=== PATIENT | female | born 1940 | race Hispanic/Latino ===

== ENCOUNTER 2018-03-15 06:29 | Day surgery (SDC) | payer OTHER, MEDICARE ==
[2018-03-08 16:34] LABS: APPEARANCE,URINE SL CLOUDY (CLEAR); BILIRUBIN,URINE NEGATIVE (NEGATIVE); COLOR,URINE YELLOW (YELLOW); GLUCOSE, URINE (UA) NEGATIVE (NEGATIVE); KETONES,URINE NEGATIVE (NEGATIVE); LEUKOCYTE ESTERASE ,URINE SMALL (NEGATIVE); NITRATE,URINE NEGATIVE (NEGATIVE); OCCULT BLOOD,URINE MODERATE (NEGATIVE); PH,URINE 6.5 (5.0-8.0); PROTEIN,URINE 100 (NEGATIVE); UROBILINOGEN,URINE 0.2 mg/dL (0.2-1.0)
[2018-03-08 16:35] LABS: BASOPHILS % (AUTO) 0.7 % (0.0-5.0); EOSINOPHILS % (AUTO) 3.1 % (0.0-8.0); HEMATOCRIT 36.5 % (36-48); LYMPHOCYTES % (AUTO) 24.1 % (21.0-51.0); MEAN CORPUSCULAR HEMOGLOBIN 29.1 pg (27.0-33.0); MEAN CORPUSCULAR HGB CONC 33.3 g/dL (32.0-36.0); MEAN CORPUSCULAR VOLUME 87.6 fL (79-99); MONOCYTES % (AUTO) 8.9 % (3.0-13.0); NEUTROPHILS % (AUTO) 63.2 % (40.0-77.0); PLATELET COUNT (AUTO) 212 K/uL (130-400); RED BLOOD CELL COUNT(AUTO) 4.17 MIL/uL (4.00-5.50); RED CELL DISTRIBUTION WIDTH 13.6 % (11.0-15.5); WHITE BLOOD COUNT (AUTO) 6.3 K/uL (4.8-10.8)
[2018-03-08 16:36] VITALS: BP 133/51
[2018-03-08 16:49] LABS: POTASSIUM 4.2 mmol/L (3.5-5.1)
[2018-03-08 16:52] LABS: BACTERIA,URINE Rare /HPF (None Seen); YEAST,URINE BUDDING Few /HPF (None Seen)
[2018-03-08 16:53] LABS: SQUAMOUS EPITHELIAL CELL,UR Rare /HPF (0-2)
[2018-03-15] VITALS (13 sets, daily range): BP systolic 118–140; BP diastolic 54–68
[~2018-03-15] VITALS: Ht 147.3 cm; Wt 58.6 kg
[2018-03-15] MEDS: CEFTRIAXONE SODIUM 1 GM IVP SCH ×2 (06:00→08:35)
[~2018-03-15 06:29] MED LIST: ALEN70TA47 PO; CALC600T12 PO; GABA-531 PO; LIOT5TAB8 PO; LISI-613 PO; LORA10TA7 PO; MACR100 PO; SIMV10TA6 PO; VIT D2 PO
[2018-03-15] MEDS ORDERED: SODIUM CHLORIDE 0.9% 1000ML 1,000 ML IV ONE (07:06)
[2018-03-15] MEDS ORDERED: DEXAMETHASONE SOD PHOSPHATE 10MG/ML 1ML VIAL ONE (07:53)
[2018-03-15] MEDS ORDERED: LIDOCAINE PF 2% 5ML ABBOJECT ONE (07:53)
[2018-03-15] MEDS ORDERED: ONDANSETRON HCL 4 MG/2 ML VIAL ONE (07:53)
[2018-03-15] MEDS ORDERED: NEOSTIGMINE 5MG/5ML SYR IV ONE (07:53)
[2018-03-15] MEDS ORDERED: MIDAZOLAM HCL 1 MG/ML 2ML VIAL ONE (07:53)
[2018-03-15] MEDS ORDERED: PROPOFOL 10 MG/ML 20ML VIAL IV ONE (07:53)
[2018-03-15] MEDS ORDERED: GLYCOPYRROLATE 0.2 MG/ML 5 ML VIAL ONE (07:53)
[2018-03-15] MEDS ORDERED: FENTANYL CITRATE PF 50 MCG/1 ML 2ML VIAL ONE (07:54)
[2018-03-15] MEDS ORDERED: BOTULINUM TOXIN TYPE A 100 UNITS/VIAL INJ ONE (08:00)
[2018-03-15] MEDS ORDERED: EPHEDRINE SULFATE 50 MG/ML AMPULE ONE (08:53)
== END 2018-03-15 11:05 | disposition home or self-care (01) ==
LOC: DAH 06:29
PROVIDERS: ATTEND Urology
DX: N39.41 Urge incontinence (principal); E11.9 Type 2 diabetes mellitus without complications; I10 Essential (primary) hypertension; K21.9 Gastro-esophageal reflux disease without esophagitis; E03.9 Hypothyroidism, unspecified; Z98.890 Other specified postprocedural states
CPT/HCPCS: 36415; 52287; 80048; 81001; 82948 ×2; 85025; 87088; 93005; A4215; A4218; A4358; A4600; J0696; J1100; J2001; J2405; J2704; J2710; J3010; J3490 ×2; J7030 ×2; J2250

== ENCOUNTER 2018-03-29 21:33 | Emergency (ER) | payer OTHER, MEDICARE ==
[2018-03-29 21:53] LABS: APPEARANCE,URINE CLOUDY (CLEAR); BILIRUBIN,URINE SMALL (NEGATIVE); COLOR,URINE RED (YELLOW); GLUCOSE, URINE (UA) NEGATIVE (NEGATIVE); KETONES,URINE 5 mg/dL (NEGATIVE); LEUKOCYTE ESTERASE ,URINE MODERATE (NEGATIVE); NITRATE,URINE POSITIVE (NEGATIVE); OCCULT BLOOD,URINE LARGE (NEGATIVE); PH,URINE 7.5 (5.0-8.0); PROTEIN,URINE >=300 (NEGATIVE)
[2018-03-29 21:58] LABS: RBC,URINE Full Field /HPF (0-1)
[2018-03-29 21:59] LABS: BACTERIA,URINE Few /HPF (None Seen)
[2018-03-29 22:14] LABS: BASOPHILS % (AUTO) 0.4 % (0.0-5.0); HEMATOCRIT 34.8 % (36-48); LYMPHOCYTES % (AUTO) 15.1 % (21.0-51.0); MEAN CORPUSCULAR HEMOGLOBIN 29.7 pg (27.0-33.0); MEAN CORPUSCULAR HGB CONC 34.3 g/dL (32.0-36.0); MEAN CORPUSCULAR VOLUME 86.5 fL (79-99); MONOCYTES % (AUTO) 7.4 % (3.0-13.0); NEUTROPHILS % (AUTO) 76.1 % (40.0-77.0); NUCLEATED RED BLOOD CELLS 0.1 % (0.0-0.19); PLATELET COUNT (AUTO) 230 K/uL (130-400); RED BLOOD CELL COUNT(AUTO) 4.03 MIL/uL (4.00-5.50); RED CELL DISTRIBUTION WIDTH 12.8 % (11.0-15.5); WHITE BLOOD COUNT (AUTO) 8.2 K/uL (4.8-10.8)
[2018-03-29 22:26] LABS: POTASSIUM 3.4 mmol/L (3.5-5.1)
[2018-03-29 22:31] LABS: ALBUMIN 3.5 g/dL (3.5-5.0); BILIRUBIN,TOTAL 0.3 mg/dL (0.2-1.0)
[2018-03-29 22:59] LABS: INR 0.94 (0.85-1.15); PARTIAL THROMBOPLASTIN TIME 25.7 SEC (26.3-35.5); PROTHROMBIN TIME 9.9 SEC (9.6-11.6)
[2018-03-30] MEDS ORDERED: PHENAZOPYRIDINE HCL 200 MG TABLET ONE (01:33)
== END 2018-03-30 03:28 | disposition home or self-care (01) ==
LOC: EDH 21:33
DX: N32.89 Other specified disorders of bladder (principal); R31.9 Hematuria, unspecified; R30.0 Dysuria; E11.9 Type 2 diabetes mellitus without complications; I10 Essential (primary) hypertension
CPT/HCPCS: 36415; 72192; 80053; 81001; 85025; 85610; 85730; 87088

== ENCOUNTER 2018-11-08 07:30 | Day surgery (SDC) | payer OTHER, MEDICARE ==
[2018-11-05 14:05] VITALS: BP 162/58
[2018-11-05 14:27] LABS: BASOPHILS % (AUTO) 0.6 % (0.0-5.0); EOSINOPHILS % (AUTO) 2.9 % (0.0-8.0); HEMATOCRIT 37.4 % (36-48); LYMPHOCYTES % (AUTO) 15.2 % (21.0-51.0); MEAN CORPUSCULAR HEMOGLOBIN 29.4 pg (27.0-33.0); MEAN CORPUSCULAR VOLUME 89.1 fL (79-99); MONOCYTES % (AUTO) 7.4 % (3.0-13.0); NEUTROPHILS % (AUTO) 73.9 % (40.0-77.0); PLATELET COUNT (AUTO) 238 K/uL (130-400); RED CELL DISTRIBUTION WIDTH 12.1 % (11.0-15.5); WHITE BLOOD COUNT (AUTO) 8.8 K/uL (4.8-10.8)
[2018-11-05 14:30] LABS: APPEARANCE,URINE Clear (CLEAR); BILIRUBIN,URINE Negative (NEGATIVE); COLOR,URINE Yellow (YELLOW); GLUCOSE, URINE (UA) Negative (NEGATIVE); KETONES,URINE Negative (NEGATIVE); LEUKOCYTE ESTERASE ,URINE Small (NEGATIVE); NITRATE,URINE Negative (NEGATIVE); OCCULT BLOOD,URINE Moderate (NEGATIVE); PROTEIN,URINE Negative (NEGATIVE); UROBILINOGEN,URINE 0.2 mg/dL (0.2-1.0)
[2018-11-05 14:35] LABS: CREATININE 1.1 mg/dL (0.5-1.5); POTASSIUM 4.4 mmol/L (3.5-5.1)
[2018-11-05 15:04] LABS: BACTERIA,URINE Rare /HPF (None Seen); SQUAMOUS EPITHELIAL CELL,UR Rare /HPF (0-2)
[2018-11-05 15:05] LABS: TRANSITIONAL EPI CELLS,URINE Rare /HPF (None Seen)
--- NOTE | 2018-11-07 16:35 | NUR ---
ABNORMAL LABS REPORTED ABNORMAL LABS TO [facility]. NO NEW ORDERS GIVEN.
[2018-11-08] VITALS (14 sets, daily range): BP systolic 105–152; BP diastolic 47–72
[~2018-11-08] VITALS: Ht 144.8 cm; Wt 58.2 kg
[2018-11-08] MEDS: CEFTRIAXONE SODIUM 1 GM IVP SCH ×3 (06:00→10:15)
[~2018-11-08 07:30] MED LIST changes: +ACET650T9 PO; +ALEN70TA10 PO; -ALEN70TA47 PO; +ERGO500014 PO; -MACR100 PO; +NAPR-1023 PO; -VIT D2 PO
[2018-11-08] MEDS ORDERED: LACTATED RINGERS 1000ML 1,000 ML IV ONE (08:27)
--- NOTE | 2018-11-08 08:44 | NUR ---
belongings clothes , medications given to patients daughter in law Olga Lidia Marina, also noted left shoulder bruise, pt states fell on 11-05-18. also slight swelling to lower lip . pt instructed on importance to call nurse for any needs , not to get up at all without nursing assistance. fall risk bracelet in place. family at bedside. verbalized understanding. no skin breakdown noted dr. irving notified of patient fall and bruise to left shoulder no further orders given.
[2018-11-08] MEDS ORDERED: PROPOFOL 10 MG/ML 20ML VIAL IV ONE (10:28)
[2018-11-08] MEDS ORDERED: BOTULINUM TOXIN TYPE A 100 UNITS/VIAL INJ SCH (10:30)
[2018-11-08] MEDS ORDERED: FENTANYL CITRATE PF 50 MCG/1 ML 2ML VIAL ONE (10:53)
--- NOTE | 2018-11-08 12:00 | NUR ---
NEW PT received pt from PACU, S/P Cystoscopy botox injection , pt awake and alert, vs stable on arrival.
--- NOTE | 2018-11-08 12:33 | NUR ---
dc dc instructions given to pt/ pts daughter in law with rx, instructed to f/u with dr. irving, verbalized understanding.
--- NOTE | 2018-11-08 12:55 | NUR ---
dc pt dc home via w/c ,no distress noted. accompanied by family
== END 2018-11-08 12:55 | disposition home or self-care (01) ==
LOC: DAH 07:30
PROVIDERS: ATTEND Urology
DX: N39.41 Urge incontinence (principal)
CPT/HCPCS: 36415; 52287; 80048; 81001; 85025; 87088; 93005; A4215; A4218; A4354; A4358; A4510; J0585; J0696; J2704; J3010; J7120 ×2

== ENCOUNTER 2019-02-23 17:52 | Emergency (ER) | payer OTHER, MEDICARE ==
[2019-02-23 18:53] LABS: BASOPHILS % (AUTO) 1.7 % (0.0-5.0); EOSINOPHILS % (AUTO) 3.1 % (0.0-8.0); HEMATOCRIT 35.4 % (36-48); LYMPHOCYTES % (AUTO) 18.2 % (21.0-51.0); MEAN CORPUSCULAR HEMOGLOBIN 29.9 pg (27.0-33.0); MEAN CORPUSCULAR HGB CONC 33.8 g/dL (32.0-36.0); MEAN CORPUSCULAR VOLUME 88.4 fL (79-99); MONOCYTES % (AUTO) 7.6 % (3.0-13.0); NEUTROPHILS % (AUTO) 69.4 % (40.0-77.0); PLATELET COUNT (AUTO) 239 K/uL (130-400); RED BLOOD CELL COUNT(AUTO) 4.01 MIL/uL (4.00-5.50); WHITE BLOOD COUNT (AUTO) 6.5 K/uL (4.8-10.8)
[2019-02-23 18:56] LABS: APPEARANCE,URINE Clear (CLEAR); BILIRUBIN,URINE Negative (NEGATIVE); COLOR,URINE Yellow (YELLOW); GLUCOSE, URINE (UA) Negative (NEGATIVE); KETONES,URINE Negative (NEGATIVE); LEUKOCYTE ESTERASE ,URINE Moderate (NEGATIVE); NITRATE,URINE Negative (NEGATIVE); OCCULT BLOOD,URINE Small (NEGATIVE); PROTEIN,URINE Negative (NEGATIVE); UROBILINOGEN,URINE 0.2 mg/dL (0.2-1.0)
[2019-02-23 19:04] LABS: CREATININE 0.9 mg/dL (0.5-1.5); POTASSIUM 3.8 mmol/L (3.5-5.1)
[2019-02-23 19:09] LABS: ALBUMIN 4.2 g/dL (3.5-5.0); BILIRUBIN,TOTAL 0.4 mg/dL (0.2-1.0)
[2019-02-23] MEDS ORDERED: IOHEXOL-350 75 ML VIAL IV ONE (19:12)
[2019-02-23 19:23] LABS: BACTERIA,URINE None Seen /HPF (None Seen); MUCUS,URINE Few LPF (None Seen); RBC,URINE 0-1 /HPF (0-1); RENAL EPITHELIAL CELLS,URINE Rare /HPF (None Seen); TRANSITIONAL EPI CELLS,URINE Few /HPF (None Seen)
[2019-02-23] MEDS ORDERED: DiphenhydrAMINE HCL 50 MG/ML VIAL ONE (20:04)
[2019-02-23] MEDS ORDERED: FAMOTIDINE/PF 20 MG/2 ML VIAL IV ONE (20:05)
[2019-02-23] MEDS ORDERED: ONDANSETRON HCL 4 MG/2 ML VIAL ONE (20:05)
[2019-02-23] MEDS ORDERED: CEFTRIAXONE SODIUM 1 GM ONE (20:06)
[2019-02-23] MEDS ORDERED: KETOROLAC TROMETHAMINE 15MG/ML ONE (20:06)
== END 2019-02-23 21:52 | disposition home or self-care (01) ==
LOC: EDH 17:52
DX: N39.0 Urinary tract infection, site not specified (principal); E11.9 Type 2 diabetes mellitus without complications; I10 Essential (primary) hypertension
CPT/HCPCS: 36415; 74177; 80053; 81001; 83690; 85025; 87088; 96374; 96375; 99285; J0696; J1885; J2405; Q9967; J1200; J3490

== ENCOUNTER 2019-05-30 07:22 | Day surgery (SDC) | payer OTHER, MEDICARE ==
[2019-05-21 17:00] VITALS: BP 146/67
[2019-05-21 17:16] LABS: EOSINOPHILS % (AUTO) 2.9 % (0.0-8.0); HEMATOCRIT 34.3 % (36-48); LYMPHOCYTES % (AUTO) 25.4 % (21.0-51.0); MEAN CORPUSCULAR HEMOGLOBIN 31.2 pg (27.0-33.0); MEAN CORPUSCULAR VOLUME 91.6 fL (79-99); MONOCYTES % (AUTO) 8.6 % (3.0-13.0); NEUTROPHILS % (AUTO) 62.1 % (40.0-77.0); PLATELET COUNT (AUTO) 226 K/uL (130-400); RED BLOOD CELL COUNT(AUTO) 3.74 MIL/uL (4.00-5.50); WHITE BLOOD COUNT (AUTO) 5.5 K/uL (4.8-10.8)
[2019-05-21 17:21] LABS: APPEARANCE,URINE SL CLOUDY (CLEAR); BILIRUBIN,URINE NEGATIVE (NEGATIVE); COLOR,URINE YELLOW (YELLOW); GLUCOSE, URINE (UA) NEGATIVE (NEGATIVE); KETONES,URINE NEGATIVE (NEGATIVE); LEUKOCYTE ESTERASE ,URINE NEGATIVE (NEGATIVE); NITRATE,URINE NEGATIVE (NEGATIVE); OCCULT BLOOD,URINE LARGE (NEGATIVE); PROTEIN,URINE 30 mg/dL (NEGATIVE); UROBILINOGEN,URINE 0.2 mg/dL (0.2-1.0)
[2019-05-21 17:28] LABS: POTASSIUM 4.3 mmol/L (3.5-5.1)
[2019-05-21 17:43] LABS: BACTERIA,URINE Few /HPF (None Seen); RBC,URINE 26-50 /HPF (0-1)
--- NOTE | 2019-05-22 14:52 | NUR ---
UA ABNORMAL UA FAXED TO DR. SARMIENTO TO REVIEW. MESSAGE LEFT WITH PATRICA
[2019-05-26] MEDS: CEFTRIAXONE SODIUM 1 GM IVP SCH (05:00)
[2019-05-30] VITALS (15 sets, daily range): BP systolic 60–156; BP diastolic 41–79
[~2019-05-30] VITALS: Ht 146.1 cm; Wt 57.1 kg
[~2019-05-30 07:22] MED LIST changes: +ACET-48 PO; -ACET650T9 PO; +BOTULINUM TOXIN TYPE A 100 UNITS/VIAL INJ SCH; -CALC600T12 PO; +CHOL100018 PO; -ERGO500014 PO; +LINA145C PO; -LIOT5TAB8 PO; +LIOT5TAB9 PO; -LISI-613 PO; +LISI10TA7 PO
[2019-05-30] MEDS ORDERED: LACTATED RINGERS 1000ML 1,000 ML IV ONE (09:27)
[2019-05-30] MEDS ORDERED: PROPOFOL 10 MG/ML 20ML VIAL IV ONE (11:27)
[2019-05-30] MEDS ORDERED: ONDANSETRON HCL 4 MG/2 ML VIAL ONE (11:28)
[2019-05-30] MEDS: CEFTRIAXONE SODIUM 1 GM IVP SCH (11:38)
[2019-05-30] MEDS ORDERED: FENTANYL CITRATE PF 50 MCG/1 ML 2ML VIAL ONE (11:48)
[2019-05-30] MEDS ORDERED: EPHEDRINE SULFATE 50 MG/ML AMPULE ONE (12:08)
== END 2019-05-30 14:15 | disposition home or self-care (01) ==
LOC: DAH 07:22
PROVIDERS: ATTEND Urology
DX: N39.41 Urge incontinence (principal); E11.9 Type 2 diabetes mellitus without complications; I10 Essential (primary) hypertension; K21.9 Gastro-esophageal reflux disease without esophagitis; Z90.49 Acquired absence of other specified parts of digestive tract; Z98.890 Other specified postprocedural states; Z90.710 Acquired absence of both cervix and uterus; Z79.899 Other long term (current) drug therapy; Z91.018 Allergy to other foods; Z82.49 Family history of ischemic heart disease and other diseases of the circulatory system; Z83.3 Family history of diabetes mellitus
CPT/HCPCS: 36415; 52287; 80048; 81001; 85025; 87088; 93005; A4215; A4358; A4600; J0585; J0696; J2405; J2704; J3010; J3490; J7120 ×2

== ENCOUNTER 2019-06-18 18:46 | Inpatient (IN) | payer OTHER, MEDICARE | END 2019-06-21 13:45 | disposition home or self-care (01) | LOC: EDH 18:46 → EDHIP 21:49 → 3DH 23:41 | PROC: 0TBB8ZX Excision of Bladder, Via Natural or Artificial Opening Endoscopic, Diagnostic (ICD-10-PCS; principal; 2019-06-20 13:40) | DX: R31.0 Gross hematuria (principal); N39.41 Urge incontinence; N30.11 Interstitial cystitis (chronic) with hematuria; I10 Essential (primary) hypertension ==

== ENCOUNTER 2019-08-21 10:43 | Emergency (ER) | payer OTHER, MEDICARE ==
[~2019-08-21 10:43] MED LIST changes: -BOTULINUM TOXIN TYPE A 100 UNITS/VIAL INJ SCH; +CEFD300C3 PO; +ESOM40CA PO; +LIOT5TAB11 PO; -LIOT5TAB9 PO; -NAPR-1023 PO; +TYL3 PO
[2019-08-21 11:41] LABS: APPEARANCE,URINE Clear (CLEAR); BILIRUBIN,URINE Negative (NEGATIVE); COLOR,URINE Yellow (YELLOW); GLUCOSE, URINE (UA) Negative (NEGATIVE); KETONES,URINE Negative (NEGATIVE); LEUKOCYTE ESTERASE ,URINE Small (NEGATIVE); NITRATE,URINE Negative (NEGATIVE); OCCULT BLOOD,URINE Negative (NEGATIVE); PH,URINE 7.5 (5.0-8.0); PROTEIN,URINE Negative (NEGATIVE); UROBILINOGEN,URINE 0.2 mg/dL (0.2-1.0)
[2019-08-21 11:57] LABS: RBC,URINE 0-1 /HPF (0-1); WBC,URINE 0-1 /HPF (0-1)
[2019-08-21 11:58] LABS: BACTERIA,URINE Rare /HPF (None Seen); SQUAMOUS EPITHELIAL CELL,UR Rare /HPF (0-2)
[2019-08-21 12:21] LABS: BASOPHILS % (AUTO) 0.6 % (0.0-5.0); EOSINOPHILS % (AUTO) 2.2 % (0.0-8.0); HEMATOCRIT 35.8 % (36-48); LYMPHOCYTES % (AUTO) 18.2 % (21.0-51.0); MEAN CORPUSCULAR HEMOGLOBIN 30.2 pg (27.0-33.0); MEAN CORPUSCULAR HGB CONC 33.8 g/dL (32.0-36.0); MEAN CORPUSCULAR VOLUME 89.3 fL (79-99); MONOCYTES % (AUTO) 9.2 % (3.0-13.0); NEUTROPHILS % (AUTO) 69.8 % (40.0-77.0); NUCLEATED RED BLOOD CELLS 0.1 % (0.0-0.19); PLATELET COUNT (AUTO) 186 K/uL (130-400); RED BLOOD CELL COUNT(AUTO) 4.01 MIL/uL (4.00-5.50); RED CELL DISTRIBUTION WIDTH 12.7 % (11.0-15.5); WHITE BLOOD COUNT (AUTO) 5.7 K/uL (4.8-10.8)
[2019-08-21 12:31] LABS: CREATININE 0.9 mg/dL (0.5-1.5); POTASSIUM 4.3 mmol/L (3.5-5.1)
== END 2019-08-21 14:31 | disposition home or self-care (01) ==
LOC: EDH 10:43
DX: N39.0 Urinary tract infection, site not specified (principal); I10 Essential (primary) hypertension; Z90.710 Acquired absence of both cervix and uterus; Z90.49 Acquired absence of other specified parts of digestive tract; Z91.018 Allergy to other foods
CPT/HCPCS: 36415; 74176; 80048; 81001; 85025; 87088

== ENCOUNTER 2019-09-20 18:01 | Emergency (ER) | payer OTHER, MEDICARE ==
[~2019-09-20 18:01] MED LIST changes: -ACET-48 PO; +ACET-49 PO; -SIMV10TA6 PO; +SIMV10TA97 PO
[2019-09-20 18:19] LABS: APPEARANCE,URINE Clear (CLEAR); BILIRUBIN,URINE Negative (NEGATIVE); COLOR,URINE Yellow (YELLOW); GLUCOSE, URINE (UA) Negative (NEGATIVE); KETONES,URINE Negative (NEGATIVE); LEUKOCYTE ESTERASE ,URINE Trace (NEGATIVE); NITRATE,URINE Negative (NEGATIVE); OCCULT BLOOD,URINE Negative (NEGATIVE); PROTEIN,URINE Negative (NEGATIVE); UROBILINOGEN,URINE 0.2 mg/dL (0.2-1.0)
[2019-09-20 18:39] LABS: BACTERIA,URINE Rare /HPF (None Seen); RBC,URINE 0-1 /HPF (0-1); SQUAMOUS EPITHELIAL CELL,UR Rare /HPF (0-2); WBC,URINE 0-1 /HPF (0-1)
[2019-09-20] MEDS ORDERED: LIDOCAINE HCL-MPF 1% 2ML VIAL ONE (19:53)
[2019-09-20] MEDS ORDERED: CEFTRIAXONE SODIUM 1 GM ONE (19:53)
[2019-09-20] MEDS ORDERED: PHENAZOPYRIDINE HCL 200 MG TABLET ONE (19:54)
[2019-09-20] MEDS ORDERED: DICYCLOMINE HCL 20 MG TAB ONE (19:54)
== END 2019-09-20 20:21 | disposition home or self-care (01) ==
LOC: EDH 18:01
DX: N39.0 Urinary tract infection, site not specified (principal); I10 Essential (primary) hypertension; Z90.49 Acquired absence of other specified parts of digestive tract; Z90.710 Acquired absence of both cervix and uterus; Z91.018 Allergy to other foods
CPT/HCPCS: 81001; 87088; 96372; 99284; J0696; J3490

== ENCOUNTER 2020-01-02 07:55 | Day surgery (SDC) | payer OTHER, MEDICARE ==
[2019-12-30 15:31] LABS: APPEARANCE,URINE Clear (CLEAR); BILIRUBIN,URINE Negative (NEGATIVE); COLOR,URINE Yellow (YELLOW); GLUCOSE, URINE (UA) Negative (NEGATIVE); KETONES,URINE Negative (NEGATIVE); LEUKOCYTE ESTERASE ,URINE Trace (NEGATIVE); NITRATE,URINE Negative (NEGATIVE); OCCULT BLOOD,URINE Negative (NEGATIVE); PH,URINE 6.5 (5.0-8.0); PROTEIN,URINE Negative (NEGATIVE); UROBILINOGEN,URINE 0.2 mg/dL (0.2-1.0)
[2019-12-30 15:41] VITALS: BP 139/53
[2019-12-30 15:55] LABS: BACTERIA,URINE Rare /HPF (None Seen); RBC,URINE None Seen /HPF (0-1); SQUAMOUS EPITHELIAL CELL,UR 0-2 /HPF (0-2); WBC,URINE 0-1 /HPF (0-1)
[~2020-01-02] VITALS: Ht 144.8 cm; Wt 57.1 kg
[2020-01-02] VITALS (17 sets, daily range): BP systolic 118–145; BP diastolic 50–85
[~2020-01-02 07:55] MED LIST changes: -ACET-49 PO; +ACET325C6 PO; +BOTULINUM TOXIN TYPE A 100 UNITS/VIAL INJ PRN; +CA C1TAB95 PO; -CEFD300C3 PO; -ESOM40CA PO; -TYL3 PO
[2020-01-02] MEDS ORDERED: SODIUM CHLORIDE 0.9% 1000ML 1,000 ML IV ONE (08:39)
[2020-01-02] MEDS: CEFTRIAXONE SODIUM 1 GM IVP ONE ×2 (09:11→10:15)
[2020-01-02] MEDS ORDERED: ACET650T24 PO (09:26)
[2020-01-02] MEDS ORDERED: CYAN-35 PO (09:28)
[2020-01-02] MEDS ORDERED: PROPOFOL 10 MG/ML 20ML VIAL IV ONE (10:02)
[2020-01-02] MEDS ORDERED: LIDOCAINE PF 2% 5ML ABBOJECT ONE (10:02)
[2020-01-02] MEDS ORDERED: ONDANSETRON HCL 4 MG/2 ML VIAL ONE (10:24)
[2020-01-02] MEDS ORDERED: MEPERIDINE-PF 25 MG/ML SYG ONE (11:10)
== END 2020-01-02 12:31 | disposition home or self-care (01) ==
LOC: DAH 07:55 → SUH 07:55
PROVIDERS: ATTEND Urology
DX: N30.10 Interstitial cystitis (chronic) without hematuria (principal); I10 Essential (primary) hypertension; K21.9 Gastro-esophageal reflux disease without esophagitis; E03.9 Hypothyroidism, unspecified; E78.5 Hyperlipidemia, unspecified; Z91.018 Allergy to other foods; Z79.899 Other long term (current) drug therapy; Z90.49 Acquired absence of other specified parts of digestive tract; Z90.710 Acquired absence of both cervix and uterus; Z98.890 Other specified postprocedural states; Z82.49 Family history of ischemic heart disease and other diseases of the circulatory system; Z83.3 Family history of diabetes mellitus
CPT/HCPCS: 52287; 71045; 81001; 82948 ×2; 87088; 93005; A4215 ×2; A4221; A4222; A4223; A4663; A6260; J0585; J0696; J2001; J2175; J2405; J2704; J7030

== ENCOUNTER 2020-03-23 12:50 | Emergency (ER) | payer OTHER, MEDICARE ==
[~2020-03-23 12:50] MED LIST changes: -ACET325C6 PO; +ACET650T24 PO; -ALEN70TA10 PO; +ALEN70TA69 PO; -BOTULINUM TOXIN TYPE A 100 UNITS/VIAL INJ PRN; +CYAN-35 PO; -SIMV10TA97 PO
[2020-03-23 14:02] LABS: BASOPHILS % (AUTO) 0.8 % (0.0-5.0); EOSINOPHILS % (AUTO) 2.1 % (0.0-8.0); HEMATOCRIT 33.1 % (36-48); LYMPHOCYTES % (AUTO) 22.1 % (21.0-51.0); MEAN CORPUSCULAR HEMOGLOBIN 29.8 pg (27.0-33.0); MEAN CORPUSCULAR HGB CONC 32.9 g/dL (32.0-36.0); MEAN CORPUSCULAR VOLUME 90.4 fL (79-99); MONOCYTES % (AUTO) 8.8 % (3.0-13.0); NEUTROPHILS % (AUTO) 65.8 % (40.0-77.0); PLATELET COUNT (AUTO) 217 K/uL (130-400); RED BLOOD CELL COUNT(AUTO) 3.66 MIL/uL (4.00-5.50); RED CELL DISTRIBUTION WIDTH 11.9 % (11.0-15.5); WHITE BLOOD COUNT (AUTO) 5.2 K/uL (4.8-10.8)
[2020-03-23 14:04] LABS: APPEARANCE,URINE Clear (CLEAR); BILIRUBIN,URINE Negative (NEGATIVE); COLOR,URINE Yellow (YELLOW); GLUCOSE, URINE (UA) Negative (NEGATIVE); KETONES,URINE Negative (NEGATIVE); LEUKOCYTE ESTERASE ,URINE Trace (NEGATIVE); NITRATE,URINE Negative (NEGATIVE); OCCULT BLOOD,URINE Negative (NEGATIVE); PROTEIN,URINE Negative (NEGATIVE); UROBILINOGEN,URINE 0.2 mg/dL (0.2-1.0)
[2020-03-23 14:12] LABS: BACTERIA,URINE Few /HPF (None Seen); POTASSIUM 3.9 mmol/L (3.5-5.1); RBC,URINE 0-1 /HPF (0-1); SQUAMOUS EPITHELIAL CELL,UR 0-2 /HPF (0-2)
[2020-03-23 14:15] LABS: INR 0.92 (0.85-1.15)
[2020-03-23 14:16] LABS: ALBUMIN 3.9 g/dL (3.5-5.0); BILIRUBIN,DIRECT 0.1 mg/dL (0.0-0.3); BILIRUBIN,TOTAL 0.3 mg/dL (0.2-1.0); TOTAL PROTEIN, SERUM 7.6 g/dL (6.0-8.3)
[2020-03-23] MEDS ORDERED: PHENAZOPYRIDINE HCL 200 MG TABLET ONE (15:38)
== END 2020-03-23 15:50 | disposition home or self-care (01) ==
LOC: EDH 12:50
DX: R10.31 Right lower quadrant pain (principal); I10 Essential (primary) hypertension; M19.90 Unspecified osteoarthritis, unspecified site; Z91.018 Allergy to other foods; Z90.49 Acquired absence of other specified parts of digestive tract
CPT/HCPCS: 36415; 74176; 80048; 80076; 81001; 83690; 85025; 85610; 85730; 93005

== ENCOUNTER → 2020-05-11 | Outpatient (CLI) | payer OTHER, MEDICARE ==
[~2020-05-11] MED LIST changes: +ALEN70TA10 PO; -ALEN70TA69 PO
[2020-05-11 13:48] LABS: BASOPHILS % (AUTO) 0.7 % (0.0-5.0); HEMATOCRIT 35.4 % (36-48); LYMPHOCYTES % (AUTO) 23.2 % (21.0-51.0); MEAN CORPUSCULAR HEMOGLOBIN 30.3 pg (27.0-33.0); MEAN CORPUSCULAR HGB CONC 32.5 g/dL (32.0-36.0); MEAN CORPUSCULAR VOLUME 93.2 fL (79-99); NEUTROPHILS % (AUTO) 63.9 % (40.0-77.0); PLATELET COUNT (AUTO) 236 K/uL (130-400)
[2020-05-11 13:58] LABS: CREATININE 0.9 mg/dL (0.5-1.5); POTASSIUM 4.5 mmol/L (3.5-5.1)
== END | disposition home or self-care (01) ==
LOC: RAH 13:01
PROVIDERS: ATTEND Urology
DX: R10.2 Pelvic and perineal pain (principal)
CPT/HCPCS: 36415; 80048; 85025

== ENCOUNTER → 2020-05-14 | Outpatient (CLI) | payer OTHER, MEDICARE ==
[~2020-05-14] MED LIST changes: +IOHEXOL 350 MG/ML 100ML INFUS..BTL IV ONE
== END | disposition home or self-care (01) ==
LOC: RAH 08:56
PROVIDERS: ATTEND Urology
DX: N30.90 Cystitis, unspecified without hematuria (principal); K76.89 Other specified diseases of liver; M25.78 Osteophyte, vertebrae; G95.89 Other specified diseases of spinal cord; N32.89 Other specified disorders of bladder
CPT/HCPCS: 74178; Q9967

== ENCOUNTER 2022-08-20 10:28 | Emergency (ER) | payer OTHER, MEDICARE ==
[~2022-08-20] VITALS: Ht 149.9 cm; Wt 54.4 kg
[~2022-08-20 10:28] MED LIST changes: +ACET-3204 PO; -ACET650T24 PO; -ALEN70TA10 PO; +ALEN70TA80 PO; -IOHEXOL 350 MG/ML 100ML INFUS..BTL IV ONE; +LISI10TA24 PO; -LISI10TA7 PO
[2022-08-20 10:30] VITALS: BP 108/76
== END 2022-08-20 13:23 | disposition home or self-care (01) ==
LOC: EDH 10:28
DX: R51.9 Headache, unspecified (principal); I10 Essential (primary) hypertension; Z90.49 Acquired absence of other specified parts of digestive tract; Z91.018 Allergy to other foods; Z79.899 Other long term (current) drug therapy; Z98.890 Other specified postprocedural states
CPT/HCPCS: 93005

== ENCOUNTER 2023-06-23 15:05 | Emergency (ER) | payer OTHER, MEDICARE ==
[~2023-06-23] VITALS: Ht 152.4 cm; Wt 55.8 kg
[2023-06-23 19:59] VITALS: BP 142/68; PULSE 62; RESP 20; O2SAT 99
[2023-06-23] MEDS ORDERED: IBUP-2076 PO (20:11)
[2023-06-23] MEDS ORDERED: KETOROLAC 15MG/ML VIAL (15MG/ML) IM ONE (20:30)
== END 2023-06-23 20:42 | disposition home or self-care (01) ==
LOC: EDH 15:05
DX: M25.562 Pain in left knee (principal); I10 Essential (primary) hypertension; Z79.890 Hormone replacement therapy; Z90.49 Acquired absence of other specified parts of digestive tract
CPT/HCPCS: 99283; 73562; 96372; J1885

== ENCOUNTER 2024-05-14 10:11 | Emergency (ER) | payer OTHER, MEDICARE ==
[~2024-05-14] VITALS: Ht 147.3 cm; Wt 56.7 kg
[~2024-05-14 10:11] MED LIST changes: +IBUP-2076 PO
[2024-05-14 10:16] VITALS: BP 140/76; PULSE 86; RESP 20
[2024-05-14 11:49] LABS: APPEARANCE,URINE CLEAR (CLEAR); BILIRUBIN,URINE NEGATIVE (NEGATIVE); COLOR,URINE COLORLESS (YELLOW); GLUCOSE, URINE (UA) NEGATIVE (NEGATIVE); KETONES,URINE NEGATIVE (NEGATIVE); LEUKOCYTE ESTERASE ,URINE 25 Leu/uL (NEGATIVE); NITRATE,URINE NEGATIVE (NEGATIVE); OCCULT BLOOD,URINE NEGATIVE (NEGATIVE); PH,URINE 7.5 (5.0-8.0); PROTEIN,URINE NEGATIVE (NEGATIVE); UROBILINOGEN,URINE 0.2 mg/dL (0.2-1.0)
[2024-05-14 11:55] LABS: ADD UA MICROSCOPIC YES
[2024-05-14] MEDS: ACETAMINOPHEN 325 MG TAB PO ONE (12:09)
[2024-05-14] MEDS: TETANUS/DIPHTHERIA TOXOID [ADULT] 0.5 ML VIAL IM ONE (12:16)
[2024-05-14 12:30] LABS: RBC,URINE 0-1 /HPF (0-1); SQUAMOUS EPITHELIAL CELL,UR RARE /HPF (0-2)
[2024-05-14] MEDS ORDERED: CEPH500T PO (13:18)
[2024-05-14] MEDS: CEPHALEXIN 250 MG CAPSULE PO ONE (13:25)
== END 2024-05-14 13:37 | disposition home or self-care (01) ==
LOC: EDH 10:11
DX: S01.01XA Laceration without foreign body of scalp, initial encounter (principal); N39.0 Urinary tract infection, site not specified; I10 Essential (primary) hypertension; E03.9 Hypothyroidism, unspecified; Z79.899 Other long term (current) drug therapy; Z90.49 Acquired absence of other specified parts of digestive tract; Z90.710 Acquired absence of both cervix and uterus; Z91.018 Allergy to other foods; Z98.890 Other specified postprocedural states; W18.2XXA Fall in (into) shower or empty bathtub, initial encounter; Y93.01 Activity, walking, marching and hiking; Y92.89 Other specified places as the place of occurrence of the external cause; Y99.8 Other external cause status
CPT/HCPCS: 70450; 72040; 81001; 87086; 90471; 90714; 93005

== ENCOUNTER → 2024-09-06 | Outpatient (CLI) | payer OTHER, MEDICARE ==
[~2024-09-06] MED LIST changes: +CEPH500T PO
--- NOTE | 2024-09-06 15:44 | HMCIMG ---
US SOFT TISSUE NECK REASON: LT NECK SWELLING COMPARISON: None TECHNIQUE: Ultrasound was performed of the left anterior neck soft tissues. FINDINGS: There are normal appearing cervical soft tissues. There are no focal masses. There is no visible lymphadenopathy. There are no focal fluid collections. IMPRESSION: 1. Negative ultrasound of the left neck in the area of possible palpable abnormality.
== END | disposition home or self-care (01) ==
LOC: RAH 14:27
PROVIDERS: ATTEND Internal Medicine
DX: R22.1 Localized swelling, mass and lump, neck (principal)
CPT/HCPCS: 76536

== ENCOUNTER 2024-09-30 07:58 | Observation (INO) | payer OTHER, MEDICARE ==
[~2024-09-30] VITALS: Ht 144.8 cm; Wt 53.9 kg
--- NOTE | 2024-09-30 09:09 | HMCIMG ---
Exam: NONCONTRAST CT BRAIN REASON: Syncope. COMPARISON: 05/14/2024 TECHNIQUE: Images are obtained from vertex to the skull base. The exam was performed without IV contrast. FINDINGS: There is normal appearing brain parenchyma. There are no focal mass lesions. There is is no evidence of intracranial hemorrhage or acute stroke. Ventricles and sulci appear normal. Posterior fossa and brainstem structures are unremarkable. Paranasal sinuses and remaining extracranial soft tissues appear normal as well. IMPRESSION: 1. Normal noncontrast CT brain. CT was performed with one or more following dose reduction techniques: automated exposure control, adjustment of the mA and kv according to patient's size, or use of a iterative reconstruction technique.
--- NOTE | 2024-09-30 09:11 | HMCIMG ---
FOREARM 2VWS LT REASON: Injury TECHNIQUE: 2 views were obtained. FINDINGS: There is no evidence of fracture or dislocation. There is no joint effusion. The soft tissues appear unremarkable. There is no evidence of a radiopaque foreign body. IMPRESSION: No acute findings.
--- NOTE | 2024-09-30 09:20 | HMCIMG ---
Exam: AP pelvis and left hip 4 views Reason: Trauma. FINDINGS: Bones of the pelvis appear unremarkable. Hip joint spaces appear preserved. Additional views of the proximal left femur show normal findings, no femoral neck or other fracture identified. Soft tissues appear unremarkable. Incidental note is made of lumbar spine degenerative change IMPRESSION: 1. No acute finding on views of the pelvis and the left hip.
[2024-09-30] MEDS: morPHINE 2 MG SYG IVP ONE (09:29)
[2024-09-30 09:51] LABS: BASOPHILS # (AUTO) 0.02 K/uL (0.00-0.20); BASOPHILS % (AUTO) 0.3 % (0.0-5.0); EOSINOPHILS # (AUTO) 0.04 K/uL (0.00-0.70); EOSINOPHILS % (AUTO) 0.7 % (0.0-8.0); HEMATOCRIT 36.4 % (36-48); IMMATURE GRANULOCYTE ABSOLUTE 0.02 K/uL (0-1); LYMPHOCYTES # (AUTO) 0.9 K/uL (1.0-4.8); LYMPHOCYTES % (AUTO) 15.3 % (21.0-51.0); MEAN CORPUSCULAR HGB CONC 33.5 g/dL (32.0-36.0); MEAN CORPUSCULAR VOLUME 92.6 fL (79-99); MONOCYTES # (AUTO) 0.5 K/uL (0.1-1.0); MONOCYTES % (AUTO) 9.3 % (3.0-13.0); NEUTROPHILS # (AUTO) 4.3 K/uL (1.8-7.7); NEUTROPHILS % (AUTO) 74.1 % (40.0-77.0); PLATELET COUNT (AUTO) 247 K/uL (130-400); RED BLOOD CELL COUNT(AUTO) 3.93 MIL/uL (4.00-5.50); RED CELL DISTRIBUTION WIDTH 11.4 % (11.0-15.5); WHITE BLOOD COUNT (AUTO) 5.8 K/uL (4.8-10.8)
--- NOTE | 2024-09-30 09:57 | ERN ---
General Chief Complaint: Mechanical Fall Stated Complaint: FALL AT 1999 YESTERDAY Time Seen by MD: 08:01 History of Present Illness Initial Comments 84-year-old female comes in for a syncopal episode and fall. Patient was having headache and left body pain. Patient otherwise has no concerns. Allergies: Coded Allergies: No Known Drug Allergies (Verified Allergy, Unknown, 03/14/18) banana (Unverified Allergy, Unknown, itching, 08/01/17) honey (Unverified Allergy, Unknown, itching, 08/01/17) Uncoded Allergies: nuts (Allergy, Mild, itching, 08/01/17) Home Meds Active Scripts Cephalexin (Cephalexin) 500 Mg Tablet, 500 MG PO BID for 7 Days, #14 TAB 0 Refills Prov:ROSENDA FUNG [employer] HELPER 05/14/24 Ibuprofen (Ibuprofen) 400 Mg Tablet, 400 MG PO Q6HPRN PRN for PAIN LEVEL 1 TO 5, #20 TAB Prov:MALDONADO ARTEAGA 06/23/23 Reported Medications Cyanocobalamin (Vitamin B-12) (Vitamin B-12) 1,000 Mcg Capsule, 1000 MCG PO DAILY, CAP 01/02/20 Acetaminophen (Acetaminophen 8 Hour) 650 Mg Tablet.er, 650 MG PO TID PRN for PAIN, TAB 01/02/20 Ca Carbonate/Vitamin D3/Vit K (Calcium + D Soft Chewable Tab) 1 Each Tab.chew, 1 EACH PO DAILY, TAB.CHEW 12/30/19 Linaclotide (Linzess) 145 Mcg Capsule, 145 MCG PO DAILY PRN for CONSTIPATION, CAP 06/19/19 Lisinopril (Lisinopril) 10 Mg Tablet, 10 MG PO AM, TAB 05/21/19 Cholecalciferol (Vitamin D3) (Vitamin D3) 1,000 Unit Tablet, 1000 UNIT PO AM, TAB 05/21/19 Alendronate Sodium (Alendronate Sodium) 70 Mg Tablet, 70 MG PO QWEEK, TAB ON Mon11/05/18 Liothyronine Sodium (Liothyronine Sodium) 5 Mcg Tablet, 5 MCG PO DAILY, TAB 03/09/18 Loratadine (Loratadine) 10 Mg Tablet, 10 MG PO DAILY, TAB 03/08/18 Gabapentin (Gabapentin) 300 Mg Capsule, 300 MG PO HS, CAP 08/01/17 Past Medical History Past Medical History: High Cholesterol, Hypertension, Hypothyroid, UTI Past Surgical History: Hysterectomy, Cholecystectomy, Social History Social History: Negative, Lives with family Female( History) History: Not Applicable ROS Dictation CONSTITUTIONAL: Negative except for HPI HEAD/FACE: Negative except for HPI EENT: Negative except for HPI RESPIRATORY: Negative except for HPI GASTROINTESTINAL/ABDOMINAL: Negative except for HPI GENITOURINARY: Negative except for HPI MUSCULOSKELETAL: Negative except for HPI INTEGUMENTARY: Negative except for HPI NEUROLOGICAL/PSYCH: Negative except for HPI HEMATOLOGIC/LYMPHATIC: Negative except for HPI All Systems Negative, Except as noted above. 13 point review of systems assessed and all negative except for above. Physical Exam Physical Exam Dictation Vital Signs reviewed General Appearance: Alert, oriented x 3, no acute distress, well developed, nourished. Head and Face: non-traumatic. Eyes: PERRL, pink conjunctivas, eyelid no trauma, anterior chamber with arcus senilis. Ears: Pinnas intact and no signs of trauma or erythema ear canals clear and no discharge TM no erythema Nose: No discharge, no bleeding. Oropharynx: Mouth normal, tongue pink, pharynx clear,no erythema, tonsils no exudates, no abscesses noted, mucous membrane moist Neck: Supple, non-tender, no thyromegaly, no masses, no JVD, no bruits Breast:Deferred Chest:No tenderness, no crepitus, no paradoxical movement, no retractions Lungs:Clear, well-ventilated, symmetric, no rales, no wheezing, no rhonchi, no stridor, good breath sounds bilaterally Heart: Regular rate, regular rhythm, no murmur, no gallops Vascular: no peripheral edema, Abdomen: Soft, positive bowel sounds, nondistended, no guarding, nontender, no rebound, no masses no hepatomegaly, no splenomegaly, no Guzman's sign, no hernias. Rectal: Deferred Genital: Deferred Neurological: Normal speech, motor function intact, sensory function intact Musculoskeletal: Neck nontender, full range of motion, back nontender, full range of motion, Extremities: nontender, full range of motion Skin: Color pink, dry, no turgor, no rash, no lacerations, no abrasions, no contusions. Lymphatic: Deferred Results Laboratory and Microbiology Lab and Micro Result Laboratory Tests Test 09/30/24 09:15 White Blood Count 5.8 K/uL (4.8-10.8) Red Blood Count 3.93 MIL/uL (4.00-5.50) L Hemoglobin 12.2 g/dL (12.0-16.0) Hematocrit 36.4 % (36-48) Mean Corpuscular Volume 92.6 fL (79-99) Mean Corpuscular Hemoglobin 31.0 pg (27.0-33.0) Mean Corpuscular Hemoglobin Concent 33.5 g/dL (32.0-36.0) Red Cell Distribution Width 11.4 % (11.0-15.5) Platelet Count 247 K/uL (130-400) Mean Platelet Volume 10.6 fL (7.5-10.5) H Immature Granulocyte % (Auto) 0.3 % (0-1) Neutrophils (%) (Auto) 74.1 % (40.0-77.0) Lymphocytes (%) (Auto) 15.3 % (21.0-51.0) L Monocytes (%) (Auto) 9.3 % (3.0-13.0) Eosinophils (%) (Auto) 0.7 % (0.0-8.0) Basophils (%) (Auto) 0.3 % (0.0-5.0) Neutrophils # (Auto) 4.3 K/uL (1.8-7.7) Lymphocytes # (Auto) 0.9 K/uL (1.0-4.8) L Monocytes # (Auto) 0.5 K/uL (0.1-1.0) Eosinophils # (Auto) 0.04 K/uL (0.00-0.70) Basophils # (Auto) 0.02 K/uL (0.00-0.20) Absolute Immature Granulocyte (auto 0.02 K/uL (0-1) Nucleated Red Blood Cells 0.0 % (0.0-0.19) MDM MDM: Differential diagnosis: Rationale: Tests considered and ordered secondary to shared decision making include: Previous outside records reviewed: Old ER visits. Risk of complication and/or morbidity or mortality of patient management: None Medications-Per medication reconciliation Need for hospitalization: Patient does meet criteria for hospitalization. Need for emergency major/minor surgery: No There are no social concerns with this patient. Prescription drug management Prescriptions will include symptomatic care Patient's prior external medical records from other ER visits were reviewed by me as indicated. Prior testing and results from previous visits were reviewed. Prior tests were taken into account with medical decision making and resource utilization, independent historian/historians were used to obtain complete medical history. I independently interpreted the test that were performed, results were reviewed by me and considered findings on radiology if ordered. Medical management and examination interpretation discussions were had by me with other qualified healthcare professionals as indicated for the patient's care. ED Course Orders Procedure Category Date Status Time Hip Unilat 4vw Left RAD 09/30/24 Resulted 08:20 Forearm 2vws Lt RAD 09/30/24 Resulted 08:20 12 Lead Ekg Tracing- EKG 09/30/24 Logged Technical 08:20 Cbc With Differential LAB 09/30/24 Complete 08:20 Basic Metabolic Panel LAB 09/30/24 In Process 08:20 Troponin I High LAB 09/30/24 In Process Sensitivity 08:20 Urinalysis LAB 09/30/24 Logged W/Microscopic 08:20 Ct Head/Brain W/O CT 09/30/24 Resulted Contrast 08:31 Morphine 2mg Syg PHA 09/30/24 Complete (Morphine 2mg Syg) 09:30 Current Medications Medications (Trade) Dose Ordered Sig/Andreea Route PRN Reason Start Time Stop Time Status Last Admin Dose Admin Morphine Sulfate (morPHINE 2MG SYG) 2 mg ONCE ONCE IVP 09/30/24 09:30 09/30/24 09:31 DC 09/30/24 09:29 Vital Signs Date Time Temp Pulse Resp B/P (MAP) Pulse Ox O2 Delivery O2 Flow Rate FiO2 09/30/24 08:54 67 16 162/62 98 Room Air* 0 21 09/30/24 08:38 65 16 154/57 97 Room Air* 0 21 09/30/24 08:00 98.1 67 16 146/57 97 Room Air 0 DX & DISP Disposition: Inpatient Decision to Admit Date: Sep 30, 2024 Decision to Admit Time: 09:56 Departure Impression: Primary Impression: Syncope Condition: Stable Referrals: MONICA COTO MD (PCP) CAROL RAGSDALE MD Sep 30, 2024 09:57
[2024-09-30] MEDS ORDERED: acetaMINOPHEN 325 MG TAB PO PRN (10:00)
[2024-09-30] MEDS ORDERED: acetaMINOPHEN 650 MG SUPPOSITORY RC PRN (10:00)
[2024-09-30 10:04] LABS: CREATININE 0.8 mg/dL (0.5-1.0); POTASSIUM 3.8 mmol/L (3.5-5.1)
[2024-09-30 10:29] LABS: APPEARANCE,URINE CLEAR (CLEAR); BILIRUBIN,URINE NEGATIVE (NEGATIVE); COLOR,URINE LIGHT-YELLOW (YELLOW); GLUCOSE, URINE (UA) NEGATIVE (NEGATIVE); KETONES,URINE NEGATIVE (NEGATIVE); LEUKOCYTE ESTERASE ,URINE NEGATIVE Leu/uL (NEGATIVE); NITRATE,URINE NEGATIVE (NEGATIVE); OCCULT BLOOD,URINE NEGATIVE (NEGATIVE); PH,URINE 6.5 (5.0-8.0); PROTEIN,URINE NEGATIVE (NEGATIVE); UROBILINOGEN,URINE 0.2 mg/dL (0.2-1.0)
[2024-09-30 10:30] LABS: ADD UA MICROSCOPIC NO
--- NOTE | 2024-09-30 10:33 | EKG ---
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
--- NOTE | 2024-09-30 11:02 | HMCIMG ---
US CAROTID DUPLEX REASON: rule out stenosis TECHNIQUE: Exam was performed using spectral analysis and color flow imaging. FINDINGS: Color flow Doppler ultrasound shows normal-appearing bifurcations. There is no anatomic evidence of significant focal narrowing. Flow velocities and velocity ratios appear normal throughout. There is antegrade flow in both vertebral arteries. RIGHT CAROTID: CCA: 59 cm/sec ICA: 76 cm/sec Ratio: ICA/CCA: 1.3 ECA: 54 cm/sec Vertebral artery: 30 cm/sec LEFT CAROTID: CCA: 66 cm/sec ICA: 99 cm/sec Ratio: ICA/CCA: 1.5 ECA: 63 cm/sec Vertebral artery: 44 cm/sec IMPRESSION: Normal bilateral carotid Doppler ultrasound.
--- NOTE | 2024-09-30 11:45 | HMCIMG ---
CHEST 1VW REASON: syncope COMPARISON: 12/30/2019 FINDINGS: Single view of the chest was obtained. Lungs are clear. Heart size is normal. There is no pulmonary vascular congestion. Mediastinum and bony thorax appear unremarkable. IMPRESSION: 1. Normal single view chest x-ray.
[2024-09-30 12:00] VITALS: BP 154/67; PULSE 53; RESP 18; TEMP 97.6
[2024-09-30 12:11] LABS: COVID19 (SARS ANTIGEN RAPID) PRESUMPTIVE NEGATIVE (NEGATIVE)
[2024-09-30 12:12] LABS: INFLUENZA TYPE A Negative For Type A (NEGATIVE); INFLUENZA TYPE B Negative For Type B (NEGATIVE); RAPID GROUP A STREP negative (NEGATIVE)
--- NOTE | 2024-09-30 15:30 | HP ---
[facility] HISTORY & PHYSICAL Date Patient Seen: Sep 30, 2024 Time of Visit: 15:29 Supervising Physician: Bala Dsouza MD Primary Care Physician: Boone Galvez MD Outpatient Specialists: Scott Santiago MD Inpatient Consults: [ ] PROBLEM LIST: Syncope episode and fall, POA Mild Hyponatremia, POA Mild interstitial fibrosis on CT 09/30/24 Elevated D Dimer, DVT Ruled out, PE ruled out Right Hepatic Cyst Measuring 4.1cm x 3cm on CT 09/30/24 Abrasion to left forearm, POA left hip contusion, POA Hx of falls Essential hypertension Osteoarthritis GERD Hypothyroidism HPI: This is an 84-year-old female with a history of hypertension, hyperglycemia, h ypothyroidism, and recurrent falls was brought in by [id number] to the emergency department for evaluation of syncope and fall. Patient is afebrile hemodynamically stable, heart rate between 53 and 68, respiratory even and unlabored saturating 97% on room air. On EKG patient sinus rhythm with a rate of 61 bpm. On laboratory WBCs 5.8 H&H is 12.2/36.4 completely normal. Sodium 134 chloride 98, D-dimer 932, otherwise laboratory unremarkable. As per ED physician Dr Garcia he will like patient admitted for syncope workup. On assessment patient was awake alert and oriented x3 she denied any headache, blurry vision nausea vomiting or chest pain. She reports she had a mechanical fall slipped from a step and fell. She denied any syncope or previous episode of syncope. Patient was by herself there was no family at bedside to verify if there was syncope involved. From ED staff report syncope was reported by family. Patient's laboratory remarkable for elevated D-dimer we will rule out PE. Per Dr Dsouza order MRI of the brain without contrast, We will re-evaluate in the morning if patient continues stable we will DC home with family. Case management to evaluate DC planning due to patient reports previous falls and lives alone. PAST MEDICAL HX: GERD Hypertension Arthritis Hemorrhoids Recurrent UTIs Diabetes Hypertension Hypothyroidism PAST SURGICAL HX: noncontributory SOCIAL HISTORY: No smoking No alcohol use Lives home alone Coded Allergies: No Known Drug Allergies (Verified Allergy, Unknown, 03/14/18) banana (Unverified Allergy, Unknown, itching, 08/01/17) honey (Unverified Allergy, Unknown, itching, 08/01/17) Uncoded Allergies: nuts (Allergy, Mild, itching, 08/01/17) REVIEW OF SYSTEMS: General: No malaise or fever. Neurological: No fainting episodes or seizures. HEENT: No nasal congestion or nasal secretion. Respiratory: No cough, shortness of breath, or wheezing Cardiac: No chest pain or palpitations. Gastrointestinal: No vomiting or diarrhea. Genitourinary: No dysuria hematuria. Skin: No rashes or lesions. Hematological: No bruises or bleeding. Musculoskeletal: Pain to left arm abrasion and left hip tenderness. Psychiatric: No depression or panic attacks. PHYSICAL EXAM: GENERAL: alert, weak, awake oriented x 3 HEENT: EOMI, Sclera non icteric, moist mucosa NECK: Supple, no JVD, trachea midline LUNGS: Clear breath sounds bilaterally. No wheezes HEART: Regular rate and rhythm. Normal S1 and S2, without murmurs ABD: Abdomen soft, nontender. Bowel sounds present EXT: No clubbing cyanosis or edema, abrasion noted to left forearm, left hip pain NEURO: Alert and oriented to person, follows commands Vital Signs (last 8hr) Date Time Temp Pulse Resp B/P (MAP) Pulse Ox O2 Delivery O2 Flow Rate FiO2 09/30/24 12:00 97.5 53 18 154/67 95 Room Air 0.0 09/30/24 11:18 98.1 56 16 166/49 97 Room Air* 0 09/30/24 08:54 67 16 162/62 98 Room Air* 0 09/30/24 08:38 65 16 154/57 97 Room Air* 0 09/30/24 08:00 98.1 67 16 146/57 97 Room Air 0 LABS: Hematology Labs: Test 09/30/24 09:15 Range/Units White Blood Count 5.8 4.8-10.8 K/uL Red Blood Count 3.93 L 4.00-5.50 MIL/uL Hemoglobin 12.2 12.0-16.0 g/dL Hematocrit 36.4 36-48 % Mean Corpuscular Volume 92.6 79-99 fL Mean Corpuscular Hemoglobin 31.0 27.0-33.0 pg Mean Corpuscular Hemoglobin Concent 33.5 32.0-36.0 g/dL Red Cell Distribution Width 11.4 11.0-15.5 % Platelet Count 247 130-400 K/uL Mean Platelet Volume 10.6 H 7.5-10.5 fL Immature Granulocyte % (Auto) 0.3 0-1 % Neutrophils (%) (Auto) 74.1 40.0-77.0 % Lymphocytes (%) (Auto) 15.3 L 21.0-51.0 % Monocytes (%) (Auto) 9.3 3.0-13.0 % Eosinophils (%) (Auto) 0.7 0.0-8.0 % Basophils (%) (Auto) 0.3 0.0-5.0 % Neutrophils # (Auto) 4.3 1.8-7.7 K/uL Lymphocytes # (Auto) 0.9 L 1.0-4.8 K/uL Monocytes # (Auto) 0.5 0.1-1.0 K/uL Eosinophils # (Auto) 0.04 0.00-0.70 K/uL Basophils # (Auto) 0.02 0.00-0.20 K/uL Absolute Immature Granulocyte (auto 0.02 0-1 K/uL Nucleated Red Blood Cells 0.0 0.0-0.19 % Chemistry Labs: Test 09/30/24 11:04 09/30/24 09:15 Range/Units Ammonia 11 11-32 umol/L Total Creatine Kinase 138 21-232 U/L Troponin I High Sensitivity 5.3 4-50 ng/L Sodium Level 134 L 136-145 mmol/L Potassium Level 3.8 3.5-5.1 mmol/L Chloride Level 98 L 101-111 mmol/L Carbon Dioxide Level 31 21-32 mmol/L Blood Urea Nitrogen 13 7-18 mg/dL Creatinine 0.8 0.5-1.0 mg/dL Glomerular Filtration Rate Calc 72 >90 mL/min Random Glucose 90 70-105 mg/dL Total Calcium 9.8 8.5-10.1 mg/dL Coagulation Labs: Test 09/30/24 09:15 Range/Units D-Dimer Quantitative (PE/DVT) 932 *H 0-500 ng/mL DIAGNOSTICS / RADIOLOGY RESULTS: [ ] PLAN Carotid ultrasounds Orthostatic vitals MRI of the brain without contrast CTA to rule out PE PT eval and treat Case management for DC planning Resume home medications Fall precautions DVT and GI prophylaxis NEURO: Minimize central acting medications as possible. Maintain fall precautions, adequate lighting during the day PULMONARY: Supplemental 02 as needed. Maintain aspiration precautions at all times CARDIOVASCULAR: Follow hemodynamics. Vital signs per facility protocol GI & NUTRITION: Continue with nutritional support. Continue stool softeners and laxatives as needed. KIDNEYS & ELECTROLYTES: Strict monitoring of intake, output and overall fluid balance. Avoid nephrotoxic medications to the extent possible. Medications to be dosed according to renal function. Monitor electrolytes and replace as needed ENDOCRINE: Maintain blood glucose between 100-180 at all times. Hypoglycemia protocol in place INFECTIOUS DISEASE: Trend temperature, WBC and procalcitonin level Follow cultures, deescalate antibiotics as soon as possible. Panculture if new onset fever ONCOLOGY/HEMATOLOGY/COAGULATION: Monitor for s/s of bleeding Monitor hemoglobin, coagulation studies as needed SKIN: Pressure ulcer prevention per facility protocol Specialty mattress ORTHO/REHAB: Continue PT/OT Prophylaxis: Continue GI and DVT prophylaxis Code Status: Full Resuscitation Disposition: TBD Other: Total patient care time exceeds 35 minutes excluding all procedures. UZAIR [facility] Sep 30, 2024 15:29
[2024-09-30 16:00] VITALS: BP 150/63; PULSE 60; RESP 18; TEMP 97.8
--- NOTE | 2024-09-30 16:16 | HMCIMG ---
US VENOUS DOPPLER BILATERAL REASON: RULE OUT dvt COMPARISON: None Technique: Bilateral venous doppler ultrasound was performed with spectral analysis and color flow imaging technique. FINDINGS: There is a normal appearance of the common femoral, deep femoral, the profunda femoris and popliteal veins. Proximal calf veins appear normal as well. There is normal response to compression and augmentation. There is no evidence of deep venous thrombosis. IMPRESSION: Normal bilateral lower extremity venous Doppler ultrasound.
[2024-09-30 16:45] VITALS: O2SAT 95
[2024-09-30] MEDS ORDERED: IOHEXOL-350 75 ML VIAL IV ONE (17:07)
--- NOTE | 2024-09-30 17:09 | HMCSR ---
APPROVED REPORT EXAM: Two-dimensional and M-mode echocardiogram with Doppler and color Doppler. INDICATION ICD: Syncope, assess for valvulopathy and PE 2D Dimensions RVDd3.6 cmLVEF(%)59.0 (>50%)LVED Vol(simp.)54.1 mL IVSd0.7 (0.7-1.1cm)FS(%)31 %LVES Vol(simp.)19.6 mL LVDd3.9 (3.8-5.6cm)LA (2D)3.4 (1.6-4.0cm)LVEF(%, simp.)64 % PWd0.8 (0.7-1.1cm)Ao Root(2D)2.8 (2.0-3.7cm)LA ESV INDEX (4CH)20.70 mL/m2 IVSs1.0 cmLVOT diam1.8 (1.8-2.4cm)LA ESV INDEX (2CH)28.70 mL/m2 LVDs2.7 (2.5-4.0cm)LA ESV INDEX (BP)24.20 mL/m2 PWs0.9 cm Deformation Strain Apical 423.0 % Apical 226.0 % Apical 325.0 % Global Pdsfmc04.0 % M-Mode Dimensions EPSS0.5 cm LA (MM)3.5 (1.6-4.0cm) Ao Root(MM)2.7 (2.0-3.7cm) Aortic Valve AoV VTI0.3 mAo Mean GR3.0 mmHgLVOT VTI0.22 m SHAUN (VMAX)1.9 cm2AVA (VTI) 1.9 cm2 Mitral Valve MV E Vmax69.8 cm/sDECEL Gilg643 ms MV A Wfqh821.6 cm/sP 1/2 T51 ms E/A ratio0.6MVA (PHT)4.4 cm2 TDI E/E' Oblmtq30.9E/E' Vlsukag38.4 Medial E' Peak V4.40 cm/sLateral E' Peak V6.10 cm/s Pulmonary Valve PV VTI0.20 mPV Mean GR2 mmHg PI End Lisa. Morteza 92.1 cm/s Tricuspid Valve TR Vmax2.6 m/sRAP (EST) 3 smThNSIQ58.5 mmHg TR Peak GR27.5 mmHg Left Ventricle The left ventricle is normal size. GLS -25.0% There is normal left ventricular wall thickness. LVEF i s 60-65%. Left ventricular filling pattern is normal for age. Right Ventricle The right ventricle is normal size. The right ventricular systolic function is normal. Atria The left atrium size is normal. The right atrium size is normal. Aortic Valve The aortic valve is normal in structure. Trace of aortic regurgitation is present. There is no aortic valvular stenosis. Mitral Valve The mitral valve is normal in structure. There is no mitral valve regurgitation noted. There is no mi tral valve stenosis. Tricuspid Valve The tricuspid valve is normal in structure. There is trace of tricuspid valve regurgitation noted. Pulmonic Valve The pulmonary valve is normal in structure. There is trace of pulmonic valvular regurgitation. Great Vessels The aortic root is normal in size. The IVC is normal in size and collapses >50% with inspiration. Pericardium There is no pericardial effusion. Other Information Quality : Adequate Conclusion The left ventricle is normal size. LVEF is 60-65%. Left ventricular filling pattern is normal for age. The right ventricle is normal size. The right ventricular systolic function is normal. The left atrium size is normal. The right atrium size is normal. No valvular pathology. There is no pericardial effusion.
--- NOTE | 2024-09-30 17:37 | HMCIMG ---
CT CHEST PE PROTOCOL WWO CONT HISTORY: Elevated d-dimer COMPARISON: None TECHNIQUE: CT angiography of the chest was performed. The study was performed using angiographic technique with maximum intensity projection reconstruction images. Patient was given 75 cc of Omnipaque through intravenous route. FINDINGS: There are mild interstitial fibrosis. No CT evidence of filling defect is seen to suggest pulmonary embolus. No CT evidence of aortic dissection is seen. No evidence of parenchymal disease is seen. No CT evidence of pleural effusion or pericardial effusion is seen. The heart is enlarged. There is dextroscoliosis. No evidence of adrenal mass is seen. Degenerative changes of the spine are noted. There is right hepatic cyst measuring 4.1 x 3 cm. Fatty changes of the liver are noted. Common duct is dilated measuring 22 mm. IMPRESSION: 1. No CT evidence of acute pulmonary embolus is seen. There are mild interstitial fibrosis. CT was performed with one or more following dose reduction techniques: automated exposure control, adjustment of the mA and kv according to patient's size, or use of a iterative reconstruction technique.
[2024-09-30] MEDS ORDERED: ATOR10TA69 PO (18:37)
[2024-09-30 19:40] VITALS: BP 136/59; PULSE 68; RESP 18; TEMP 98.5
[2024-09-30 20:05] VITALS: O2SAT 98
[2024-09-30] MEDS ORDERED: Linaclotide (Linzess) 145 MCG PO PRN (23:30)
[2024-09-30] MEDS ORDERED: ACETAMINOPHEN 650 MG PO PRN (23:30)
--- NOTE | 2024-09-30 23:45 | NUR ---
PT REFUSED TETANUS ORDERED, STATES RECEIVED RECENTLY OUTPATIENT.
[2024-09-30] MEDS: teTANUS/diphthERIA TOXOID [ADULT] 0.5 ML VIAL IM ONE (23:56)
[2024-10-01 00:02] VITALS: BP 136/58; PULSE 65; RESP 18; TEMP 98.9
[2024-10-01 03:49] LABS: BASOPHILS # (AUTO) 0.03 K/uL (0.00-0.20); BASOPHILS % (AUTO) 0.4 % (0.0-5.0); EOSINOPHILS # (AUTO) 0.11 K/uL (0.00-0.70); EOSINOPHILS % (AUTO) 1.6 % (0.0-8.0); HEMATOCRIT 34.5 % (36-48); IMMATURE GRANULOCYTE ABSOLUTE 0.03 K/uL (0-1); LYMPHOCYTES # (AUTO) 1.5 K/uL (1.0-4.8); LYMPHOCYTES % (AUTO) 22.6 % (21.0-51.0); MEAN CORPUSCULAR HEMOGLOBIN 30.6 pg (27.0-33.0); MEAN CORPUSCULAR VOLUME 92.7 fL (79-99); MONOCYTES # (AUTO) 0.8 K/uL (0.1-1.0); MONOCYTES % (AUTO) 11.8 % (3.0-13.0); NEUTROPHILS # (AUTO) 4.3 K/uL (1.8-7.7); NEUTROPHILS % (AUTO) 63.2 % (40.0-77.0); PLATELET COUNT (AUTO) 239 K/uL (130-400); RED BLOOD CELL COUNT(AUTO) 3.72 MIL/uL (4.00-5.50); RED CELL DISTRIBUTION WIDTH 11.5 % (11.0-15.5); WHITE BLOOD COUNT (AUTO) 6.8 K/uL (4.8-10.8)
[2024-10-01 04:09] LABS: B-TYPE NATRIURETIC PEPTIDE 13 pg/mL (0-100)
[2024-10-01 04:19] LABS: CREATININE 0.8 mg/dL (0.5-1.0); MAGNESIUM 1.8 mg/dL (1.80-2.40); POTASSIUM 4.3 mmol/L (3.5-5.1); THYROID STIMULATING HORMONE 1.08 uIU/mL (0.36-3.74)
[2024-10-01 05:20] VITALS: BP 133/71; PULSE 67; RESP 18; TEMP 98.4
[2024-10-01 05:21] VITALS: BP 136/62; PULSE 73; RESP 18
[2024-10-01 05:22] VITALS: BP 126/68; PULSE 79; RESP 18
[2024-10-01 07:00] VITALS: BP 99/53; PULSE 91; RESP 16; TEMP 98.7; O2SAT 98
--- NOTE | 2024-10-01 09:03 | NUR ---
DCP: HOME Sw met with pt and her DIL Niurka Marina [phone]. Pt lives alone in [facility], has provider daily 8:30 to 12. Pt states she requires assist with ADLS, transportation, home management and meal prep. Pt has no HH. PCP is Veena Berumen. Pt declined need for SNF, states she will return home at ri Addendum: 10/01/24 at 0906 by ARSEN BRIONES Amended: Links added.
[2024-10-01] MEDS: BACITRACIN 1 EACH PACKET TP SCH (09:57)
[2024-10-01] MEDS: ENOXAPARIN SODIUM 40 MG/0.4 ML SYRINGE SQ SCH (09:57)
[2024-10-01] MEDS: LORATAdine 10 mg 10 MG TABLET PO SCH (09:58)
[2024-10-01] MEDS: PANTOPrazole 40 MG TAB DR PO SCH (09:58)
[2024-10-01] MEDS: LISINOPRIL 10 MG TABLET PO SCH (09:58)
[2024-10-01] MEDS: Cholecalciferol (Vitamin D3) (Vitamin D3) 1,000 UNIT PO SCH (10:06)
[2024-10-01] MEDS: Liothyronine Sodium 5 MCG PO SCH (10:07)
[2024-10-01 11:00] VITALS: BP 127/63; PULSE 68; RESP 18; TEMP 98.5
--- NOTE | 2024-10-01 13:08 | DS ---
[facility] DISCHARGE SUMMARY Date Patient Seen: Oct 01, 2024 Time of Visit: 13:08 Supervising Physician: Bala Avina Primary Care Physician: Boone Galvez MD Outpatient Specialists: Scott Santiago MD Inpatient Consults: NA Diagnosis at Discharge Mechanical fall- denied syncope POA Mild Hyponatremia, POA Mild interstitial fibrosis on CT 09/30/24 Elevated D Dimer, DVT Ruled out, PE ruled out Right Hepatic Cyst Measuring 4.1cm x 3cm on CT 09/30/24 Abrasion to left forearm, POA left hip contusion, POA Hx of falls Essential hypertension Osteoarthritis GERD Hypothyroidism Problem list at admission Syncope episode and fall, POA Mild Hyponatremia, POA Mild interstitial fibrosis on CT 09/30/24 Elevated D Dimer, DVT Ruled out, PE ruled out Right Hepatic Cyst Measuring 4.1cm x 3cm on CT 09/30/24 Abrasion to left forearm, POA left hip contusion, POA Hx of falls Essential hypertension Osteoarthritis GERD Hypothyroidism HOSPITAL COURSE: HPI This is an 84-year-old female with a history of hypertension, hyperglycemia, hypothyroidism, and recurrent falls was brought in by [id number] to the emergency department for evaluation of syncope and fall. Patient is afebrile hemodynamically stable, heart rate between 53 and 68, respiratory even and unlabored saturating 97% on room air. On EKG patient sinus rhythm with a rate of 61 bpm. On laboratory WBCs 5.8 H&H is 12.2/36.4 completely normal. Sodium 134 chloride 98, D-dimer 932, otherwise laboratory unremarkable. As per ED physician Dr Garcia he will like patient admitted for syncope workup. On assessment patient was awake alert and oriented x3 she denied any headache, blurry vision nausea vomiting or chest pain. She reports she had a mechanical fall slipped from a step and fell. She denied any syncope or previous episode of syncope. Patient was by herself there was no family at bedside to verify if there was syncope involved. From ED staff report syncope was reported by family. Patient's laboratory remarkable for elevated D-dimer we will rule out PE. Per Dr Dsouza order MRI of the brain without contrast, We will re-evaluate in the morning if patient continues stable we will DC home with family. Case management to evaluate DC planning due to patient reports previous falls and lives alone. Hospital course Patient came to the hospital on 09/30/2024 for evaluation after a fall the day before. Imaging of the hip and forearm with no acute fracture. CT scan of the head was normal noncontrast CT brain. Carotid ultrasound was negative for stenosis. Echocardiogram was with LVEF of 60 to 65%. No valvular pathology. Venous Doppler of the lower extremity are negative for DVT. Chest x-ray is with clear lungs. Patient also has CT scan of the chest to rule out PE and it was also negative for PE but with mild interstitial fibrosis. Patient is stable to be discharged home to follow up with PCP in 2 to 3 days. To continue home medication. PROCEDURES: CT head Echocardiogram CXR CT PE protocol Venous doppler Xray of of hip and forearm All negative DISCHARGE MEDICATIONS: Continue home medications Pt hemodynamically stable and afebrile at time of discharge. PCP notified of patients admission, hospital course and discharge. Continued Medications: Acetaminophen (Acetaminophen 8 Hour) 650 Mg Tablet.er 650 MG PO TID PRN for PAIN, TAB Alendronate Sodium (Alendronate Sodium) 70 Mg Tablet 70 MG PO QWEEK, TAB ON MON Atorvastatin Calcium (Atorvastatin Calcium) 10 Mg Tablet 1 TAB PO HS for 30 Days, #30 TAB 0 Refills Cholecalciferol (Vitamin D3) (Vitamin D3) 1,000 Unit Tablet 1000 UNIT PO AM, TAB Gabapentin (Gabapentin) 300 Mg Capsule 300 MG PO HS, CAP Linaclotide (Linzess) 145 Mcg Capsule 145 MCG PO DAILY PRN for CONSTIPATION, CAP Liothyronine Sodium (Liothyronine Sodium) 5 Mcg Tablet 5 MCG PO DAILY, TAB Lisinopril (Lisinopril) 10 Mg Tablet 10 MG PO AM, TAB Loratadine (Loratadine) 10 Mg Tablet 10 MG PO DAILY, TAB PHYSICAL EXAM: GENERAL: alert, weak, awake oriented x 3 HEENT: EOMI, Sclera non icteric, moist mucosa NECK: Supple, no JVD, trachea midline LUNGS: Clear breath sounds bilaterally. No wheezes HEART: Regular rate and rhythm. Normal S1 and S2, without murmurs ABD: Abdomen soft, nontender. Bowel sounds present EXT: No clubbing cyanosis or edema, abrasion noted to left forearm, left hip pain NEURO: Alert and oriented to person, follows commands FOLLOW-UP: Follow-up with PCP in 2-3 days RECOMMENDATIONS: See Discharge Instructions No driving This case was seen and discussed with my supervising physician. More than 30 minutes spent on discharge process, including evaluation of the patient, discussion with nursing staff, medication reconciliation and follow-up appointm YANG Griffin BUNCH MAKER HAND Oct 01, 2024 13:08
[2024-10-01] MEDS ORDERED: GABAPENTIN 300 MG CAPSULE PO SCH (21:00)
[2024-10-01] MEDS ORDERED: atorVAStatin 10 MG TABLET PO SCH (21:00)
== END 2024-10-01 14:15 | disposition home or self-care (01) ==
LOC: EDH 07:58 → EDHIP 09:55 → 2DH 11:46
PROVIDERS: ADMIT Internal Medicine; ATTEND Internal Medicine
DX: E87.1 Hypo-osmolality and hyponatremia (principal); Z20.822 Contact with and (suspected) exposure to COVID-19; J84.10 Pulmonary fibrosis, unspecified; R79.89 Other specified abnormal findings of blood chemistry; K76.89 Other specified diseases of liver; S70.02XA Contusion of left hip, initial encounter; S50.812A Abrasion of left forearm, initial encounter; I10 Essential (primary) hypertension; R55 Syncope and collapse; M19.90 Unspecified osteoarthritis, unspecified site; E03.9 Hypothyroidism, unspecified; R29.6 Repeated falls; R60.0 Localized edema; E78.00 Pure hypercholesterolemia, unspecified; K21.9 Gastro-esophageal reflux disease without esophagitis; E11.9 Type 2 diabetes mellitus without complications; Z87.440 Personal history of urinary (tract) infections; Z90.710 Acquired absence of both cervix and uterus; Z90.49 Acquired absence of other specified parts of digestive tract; Z91.030 Bee allergy status; Z91.018 Allergy to other foods; Z79.899 Other long term (current) drug therapy; W01.0XXA Fall on same level from slipping, tripping and stumbling without subsequent striking against object, initial encounter; Y93.89 Activity, other specified; Y92.89 Other specified places as the place of occurrence of the external cause; Y99.8 Other external cause status
CPT/HCPCS: 96374; 99285; 82550 ×4; 84484 ×4; 80048 ×2; 82140; 85025 ×2; 85378; 87880; 87804 ×2; 87426; 81003; 36415 ×2; 71045; 73090; 73503; 70450; 71270; 93306; 93356; 93970; 93880; 93005; 96372; 84443; 83735; 84100; 83880; 97161; 84145; G0378 ×27; J2270; Q9967; J1650; 90714

== ENCOUNTER 2025-01-12 07:34 | Observation (INO) | payer OTHER, MEDICARE ==
[~2025-01-12] VITALS: Ht 149.9 cm; Wt 52.6 kg
[~2025-01-12 07:34] MED LIST changes: +ATOR10TA69 PO; -CA C1TAB95 PO; -CEPH500T PO; -CYAN-35 PO; -IBUP-2076 PO
--- NOTE | 2025-01-12 07:45 | NUR ---
PT JUST NOW ASSIGNED TO MY ED BED B1
[2025-01-12 08:12] LABS: APPEARANCE,URINE CLEAR (CLEAR); BILIRUBIN,URINE NEGATIVE (NEGATIVE); COLOR,URINE COLORLESS (YELLOW); GLUCOSE, URINE (UA) NEGATIVE (NEGATIVE); KETONES,URINE NEGATIVE (NEGATIVE); LEUKOCYTE ESTERASE ,URINE NEGATIVE Leu/uL (NEGATIVE); NITRATE,URINE NEGATIVE (NEGATIVE); OCCULT BLOOD,URINE NEGATIVE (NEGATIVE); PROTEIN,URINE NEGATIVE (NEGATIVE); UROBILINOGEN,URINE 0.2 mg/dL (0.2-1.0)
--- NOTE | 2025-01-12 08:18 | ERN ---
General Chief Complaint: Painful Urination Stated Complaint: URINARY DISCOMFORT Time Seen by MD: 07:38 Source: patient History of Present Illness Initial Comments This is a an 84-year-old female coming in to be evaluated for dysuria. Per patient she has been having these symptoms for three days. Patient also states that she has a history of bladder infections. Allergies: Coded Allergies: No Known Drug Allergies (Verified Allergy, Unknown, 03/14/18) banana (Unverified Allergy, Unknown, itching, 08/01/17) honey (Unverified Allergy, Unknown, itching, 08/01/17) Uncoded Allergies: nuts (Allergy, Mild, itching, 08/01/17) Home Meds Reported Medications Atorvastatin Calcium (Atorvastatin Calcium) 10 Mg Tablet, 1 TAB PO HS for 30 Days, #30 TAB 0 Refills 09/30/24 Acetaminophen (Acetaminophen 8 Hour) 650 Mg Tablet.er, 650 MG PO TID PRN for PAIN, TAB 01/02/20 Linaclotide (Linzess) 145 Mcg Capsule, 145 MCG PO DAILY PRN for CONSTIPATION, CAP 06/19/19 Lisinopril (Lisinopril) 10 Mg Tablet, 10 MG PO AM, TAB 05/21/19 Cholecalciferol (Vitamin D3) (Vitamin D3) 1,000 Unit Tablet, 1000 UNIT PO AM, TAB 05/21/19 Alendronate Sodium (Alendronate Sodium) 70 Mg Tablet, 70 MG PO QWEEK, TAB ON Mon11/05/18 Liothyronine Sodium (Liothyronine Sodium) 5 Mcg Tablet, 5 MCG PO DAILY, TAB 03/09/18 Loratadine (Loratadine) 10 Mg Tablet, 10 MG PO DAILY, TAB 03/08/18 Gabapentin (Gabapentin) 300 Mg Capsule, 300 MG PO HS, CAP 08/01/17 Past Medical History Past Medical History: High Cholesterol, Hypertension, Hypothyroid, UTI Past Surgical History: Hysterectomy, Cholecystectomy, Social History Social History: Negative, Lives with family Female( History) History: Not Applicable ROS Dictation CONSTITUTIONAL: No chills, no fever, no weakness, no diaphoresis, no malaise. HEAD/FACE: No signs of trauma. EENT: No eye pain, no blurred vision, no tearing, no double vision, no ear pain, no ear discharge, no nose pain, no nasal congestion, no throat pain, no throat swelling, no mouth pain. RESPIRATORY: No cough, no orthopnea, no SOB, no stridor, no wheezing. CARDIOVASCULAR: No chest pain, no edema, no palpitations, no syncope. GASTROINTESTINAL/ABDOMINAL: No abdominal pain, no constipation, no diarrhea, no nausea, no vomiting. GENITOURINARY: No abnormal discharge, no dysuria, no frequent urination, no hematuria. No complaints of pain in the genitals. MUSCULOSKELETAL: No back pain, no gout, no joint pain, no joint swelling, no muscle pain, no muscle stiffness, no neck pain. INTEGUMENTARY: No change in color, no change in hair/nails, no dryness, no lesion, no lumps, no rash. NEUROLOGICAL/PSYCH: No anxiety, not depressed, no emotional problem, no headache, no numbness, no pre-existing deficit, no history of seizures, no tremors, no weakness. HEMATOLOGIC/LYMPHATIC: Not anemic, no history of blood clots, no apparent bleeding, no bruising, glands not swollen. All Systems Negative, Except as Noted. Physical Exam Physical Exam Dictation VITAL SIGNS: Reviewed. GENERAL APPEARANCE: Alert, oriented x3, no acute distress, obese. HEAD AND FACE: Non-traumatic. EYES: PERRL, pink conjunctivas, eyelid no trauma, anterior chamber clear. EARS: Pinnas intact and no signs of trauma or erythema. Ear canals clear and no discharge. TMs no erythema. NOSE: No discharge, no bleeding. OROPHARYNX: Mouth normal, teeth no caries, tongue pink. Pharynx clear, no erythema. Tonsils no exudates, no abscesses noted. Mucous membrane moist. NECK: Supple, non-tender, no thyromegaly, no masses, no JVD, no bruits. BREAST: Deferred. CHEST: No tenderness, no crepitus, no paradoxical movement, no retractions. LUNGS: Clear, well-ventilated, symmetric, no rales, no wheezing, no rhonchi, no stridor, good breath sounds bilaterally. HEART: Regular rate, regular rhythm, no murmur, no gallops. VASCULAR: No peripheral edema. ABDOMEN: Soft, positive bowel sounds, nondistended, no guarding, nontender, no rebound, no masses no hepatomegaly, no splenomegaly, no Guzman's sign, no hernias. RECTAL: Deferred. GENITAL: Deferred. NEUROLOGICAL: Normal speech, gross motor function intact, gross sensory function intact. MUSCULOSKELETAL: Neck nontender, full range of motion, back nontender, full range of motion. EXTREMITIES: Nontender, full range of motion. SKIN: Color pink, dry, no turgor, no rash, no lacerations, no abrasions, no contusions. LYMPHATICS: Deferred. Results Laboratory and Microbiology Lab and Micro Result Laboratory Tests Test 01/12/25 07:48 01/12/25 08:32 Urine Color COLORLESS (YELLOW) Urine Appearance CLEAR (CLEAR) Urine pH 7.0 (5.0-8.0) Urine Specific Richardson 1.003 (1.001-1.031) Urine Protein NEGATIVE mg/dL (NEGATIVE) Urine Glucose (UA) NEGATIVE mg/dL (NEGATIVE) Urine Ketones NEGATIVE mg/dL (NEGATIVE) Urine Occult Blood NEGATIVE (NEGATIVE) Urine Nitrate NEGATIVE (NEGATIVE) Urine Bilirubin NEGATIVE mg/dL (NEGATIVE) Urine Urobilinogen 0.2 mg/dL (0.2-1.0) Urine Leukocyte Esterase NEGATIVE Bhavna/uL Urine RBC 0-1 /HPF (0-1) Urine WBC 2-5 /HPF (0-1) H Urine Squamous Epithelial Cells RARE /HPF (0-2) Urine Bacteria None /HPF (None Seen) White Blood Count 5.7 K/uL (4.8-10.8) Red Blood Count 3.98 MIL/uL (4.00-5.50) L Hemoglobin 12.5 g/dL (12.0-16.0) Hematocrit 36.4 % (36-48) Mean Corpuscular Volume 91.5 fL (79-99) Mean Corpuscular Hemoglobin 31.4 pg (27.0-33.0) Mean Corpuscular Hemoglobin Concent 34.3 g/dL (32.0-36.0) Red Cell Distribution Width 11.4 % (11.0-15.5) Platelet Count 226 K/uL (130-400) Mean Platelet Volume 9.6 fL (7.5-10.5) Immature Granulocyte % (Auto) 0.5 % (0-1) Neutrophils (%) (Auto) 74.0 % (40.0-77.0) Lymphocytes (%) (Auto) 16.8 % (21.0-51.0) L Monocytes (%) (Auto) 7.2 % (3.0-13.0) Eosinophils (%) (Auto) 1.1 % (0.0-8.0) Basophils (%) (Auto) 0.4 % (0.0-5.0) Neutrophils # (Auto) 4.2 K/uL (1.8-7.7) Lymphocytes # (Auto) 1.0 K/uL (1.0-4.8) Monocytes # (Auto) 0.4 K/uL (0.1-1.0) Eosinophils # (Auto) 0.06 K/uL (0.00-0.70) Basophils # (Auto) 0.02 K/uL (0.00-0.20) Absolute Immature Granulocyte (auto 0.03 K/uL (0-1) Nucleated Red Blood Cells 0.0 % (0.0-0.19) Sodium Level 124 mmol/L (136-145) L Potassium Level 3.9 mmol/L (3.5-5.1) Chloride Level 89 mmol/L (101-111) *L Carbon Dioxide Level 32 mmol/L (21-32) Blood Urea Nitrogen 11 mg/dL (7-18) Creatinine 0.8 mg/dL (0.5-1.0) Glomerular Filtration Rate Calc 72 mL/min (>90) Random Glucose 102 mg/dL (70-105) Total Calcium 9.3 mg/dL (8.5-10.1) Labs Reviewed?: Yes MDM MDM: DIFFERENTIAL DIAGNOSIS: DYSURIA, DEHYDRATION, HYPOCHLOREMIA, HYPONATREMIA RATIONALE: TESTS CONSIDERED AND ORDERED SECONDARY TO SHARED DECISION MAKING INCLUDE: LABS, ECG AND RADIOLOGY PREVIOUS OUTSIDE RECORDS REVIEWED: OLD ER VISITS. RISK OF COMPLICATION AND/OR MORBIDITY OR MORTALITY OF PATIENT MANAGEMENT: NONE MEDICATIONS-PER MEDICATION RECONCILIATION NEED FOR HOSPITALIZATION: PATIENT DOES MEET CRITERIA FOR HOSPITALIZATION. NEED FOR EMERGENCY MAJOR/MINOR SURGERY: NO THERE ARE NO SOCIAL CONCERNS WITH THIS PATIENT. PRESCRIPTION DRUG MANAGEMENT PRESCRIPTIONS WILL INCLUDE SYMPTOMATIC CARE PATIENT'S PRIOR EXTERNAL MEDICAL RECORDS FROM OTHER ER VISITS WERE REVIEWED BY ME INDICATED. PRIOR TESTING AND RESULTS FROM PREVIOUS VISITS WERE REVIEWED. PRIOR TESTS WERE TAKEN INTO ACCOUNT WITH MEDICAL DECISION MAKING AND RESOURCE UTILIZATION, INDEPENDENT HISTORIAN/HISTORIANS WERE USED TO OBTAIN COMPLETE MEDICAL HISTORY. I INDEPENDENTLY INTERPRETED THE TEST THAT WERE PERFORMED, RESULTS WERE REVIEWED BY ME AND CONSIDERED FINDINGS ON RADIOLOGY IF ORDERED. MEDICAL MANAGEMENT AND EXAMINATION INTERPRETATION DISCUSSIONS WERE HAD BY ME WITH OTHER QUALIFIED HEALTHCARE PROFESSIONALS INDICATED FOR THE PATIENT'S CARE. PATIENT IS A AN 84-YEAR-OLD FEMALE COMING IN TO BE EVALUATED FOR DYSURIA. PATIENT STATES THAT THE DYSURIA BEGAN THREE DAYS AGO. LABORATORY WORKUP POSITIVE FOR HYPOCHLOREMIA AND HYPONATREMIA PATIENT DID HAVE PRESENT WITH DYSURIA SO URINE CULTURE WILL BE COLLECTED SINCE URINARY ANALYSIS WAS NEGATIVE. PATIENT WILL BE ADMITTED UNDER THE CARE OF [facility] FOR ONGOING MANAGEMENT. ED Course Orders Procedure Category Date Status Time Cbc With Differential LAB 01/12/25 Complete 07:38 Basic Metabolic Panel LAB 01/12/25 Complete 07:38 Urinalysis LAB 01/12/25 Complete W/Microscopic 07:38 0.9%Nacl 1000ml (Ns PHA 01/12/25 Complete 1000ml) 09:30 Us Pelvic Non-Ob Comp US 01/12/25 Taken 09:28 Current Medications Medications (Trade) Dose Ordered Sig/Andreea Route PRN Reason Start Time Stop Time Status Last Admin Dose Admin Sodium Chloride 1,000 ml @ 0 mls/hr ONCE ONCE IV 01/12/25 09:30 01/12/25 09:31 DC 01/12/25 09:47 Vital Signs Date Time Temp Pulse Resp B/P (MAP) Pulse Ox O2 Delivery O2 Flow Rate FiO2 01/12/25 07:36 98.1 76 16 177/65 98 Room Air 0 01/12/25 07:36 73 16 177/65 98 Room Air* 0 21 DX & DISP Disposition: Inpatient Decision to Admit Time: 10:31 Departure Impression: Primary Impression: Dehydration Additional Impressions: Hypochloremia, Hyponatremia Condition: Stable Referrals: EDMOND DICKEY-TAHIR (PCP) ARANZA VALDES MD Jan 12, 2025 08:18
[2025-01-12 08:19] LABS: RBC,URINE 0-1 /HPF (0-1); SQUAMOUS EPITHELIAL CELL,UR RARE /HPF (0-2)
[2025-01-12 08:40] LABS: BASOPHILS # (AUTO) 0.02 K/uL (0.00-0.20); BASOPHILS % (AUTO) 0.4 % (0.0-5.0); EOSINOPHILS # (AUTO) 0.06 K/uL (0.00-0.70); EOSINOPHILS % (AUTO) 1.1 % (0.0-8.0); HEMATOCRIT 36.4 % (36-48); IMMATURE GRANULOCYTE ABSOLUTE 0.03 K/uL (0-1); LYMPHOCYTES % (AUTO) 16.8 % (21.0-51.0); MEAN CORPUSCULAR HEMOGLOBIN 31.4 pg (27.0-33.0); MEAN CORPUSCULAR HGB CONC 34.3 g/dL (32.0-36.0); MEAN CORPUSCULAR VOLUME 91.5 fL (79-99); MONOCYTES # (AUTO) 0.4 K/uL (0.1-1.0); MONOCYTES % (AUTO) 7.2 % (3.0-13.0); NEUTROPHILS # (AUTO) 4.2 K/uL (1.8-7.7); PLATELET COUNT (AUTO) 226 K/uL (130-400); RED BLOOD CELL COUNT(AUTO) 3.98 MIL/uL (4.00-5.50); RED CELL DISTRIBUTION WIDTH 11.4 % (11.0-15.5); WHITE BLOOD COUNT (AUTO) 5.7 K/uL (4.8-10.8)
[2025-01-12 09:01] LABS: CREATININE 0.8 mg/dL (0.5-1.0); POTASSIUM 3.9 mmol/L (3.5-5.1)
[2025-01-12] MEDS: 0.9%NACL 1000ML 1,000 ML IV ONE (09:47)
--- NOTE | 2025-01-12 10:51 | HMCIMG ---
US PELVIC NON-OB LIMITED HISTORY: Suprapubic pain COMPARISON: None TECHNIQUE: Bladder ultrasound study was performed. FINDINGS: Bladder is poorly distended. This is limiting evaluation. IMPRESSION: 1. Poorly visualized bladder limiting evaluation.
--- NOTE | 2025-01-12 12:13 | NUR ---
REPORT ENDORSED TO DERICK CORDERO. PT GETS UP TO BR VERY FREQENTLY W/FAMILY. PT USES A CANE AND HAS A SLOW GAIT.
--- NOTE | 2025-01-12 12:18 | HP ---
[facility] HISTORY & PHYSICAL Date Patient Seen: Jan 12, 2025 Time of Visit: 12:17 Supervising Physician: YUSUF HOBBS MD Primary Care Physician: DR CHELSIE COBIAN Outpatient Specialists: [ ] Inpatient Consults: [ ] PROBLEM LIST: Acute hyponatremia , 124 POA Severe Dysuria secondary to Urge Incontinence with suspected bladder spasms Hypertension Hyperlipidemia Hypothyroidism HPI: This is the case of an 84 year old female that presents to progressively worsening suprapubic discomfort over the course of many weeks . Patient states she gets the urge to go to the restroom every 15 minutes or so and only voids a scant amount. Denies hematuria, no vaginal discharge is post hysterectomy . Has seen Dr. Ferrell in the past and was placed on a medication temporarily but was not refilled. She is moderate distresss due to her discomfort and decided to present for further medical evaluation. In the ED she is noted to have an NA level of 124 and low Chloride level as well. BUN/Cr WNL . No leukocytosis and UA revealing no evidence of Leuk esterace or Nitrates, WBC at 2-5 . She states she has not had prior Urological interventions in past and was only given gabapentin /tylenol for her bladder symptoms and advised to drink lots of water. For this reason she states she drinks 3-4L of Water a day . 2 overnight and rest during the day . She will be admitted for acute hyponatremia mgt and further workup regarding her pelvic pressure/pain. PAST MEDICAL HX: see above PAST SURGICAL HX: Hysterectomy, section, cholecystectomy SOCIAL HISTORY: No tobacco, ETOH, or illicit drug use Coded Allergies: No Known Drug Allergies (Verified Allergy, Unknown, 03/14/18) banana (Unverified Allergy, Unknown, itching, 08/01/17) honey (Unverified Allergy, Unknown, itching, 08/01/17) Uncoded Allergies: nuts (Allergy, Mild, itching, 08/01/17) REVIEW OF SYSTEMS: 12 point ROS reviewed with patient. Pertinent positives mentioned above. Otherwise negative. PHYSICAL EXAM: GENERAL: alert, weak, awake oriented x 3 HEENT: EOMI, Sclera non icteric, moist mucosa NECK: Supple, no JVD, trachea midline LUNGS: Clear breath sounds bilaterally. No wheezes HEART: Regular rate and rhythm. Normal S1 and S2, without murmurs ABD: Abdomen soft, + suprapubic tender. Bowel sounds present EXT: No clubbing cyanosis or edema NEURO: Alert and oriented to person, follows commands Vital Signs (last 8hr) Date Time Temp Pulse Resp B/P (MAP) Pulse Ox O2 Delivery O2 Flow Rate FiO2 01/12/25 07:36 98.1 76 16 177/65 98 Room Air 0 01/12/25 07:36 73 16 177/65 98 Room Air* 0 21 LABS: Hematology Labs: Test 01/12/25 08:32 Range/Units White Blood Count 5.7 4.8-10.8 K/uL Red Blood Count 3.98 L 4.00-5.50 MIL/uL Hemoglobin 12.5 12.0-16.0 g/dL Hematocrit 36.4 36-48 % Mean Corpuscular Volume 91.5 79-99 fL Mean Corpuscular Hemoglobin 31.4 27.0-33.0 pg Mean Corpuscular Hemoglobin Concent 34.3 32.0-36.0 g/dL Red Cell Distribution Width 11.4 11.0-15.5 % Platelet Count 226 130-400 K/uL Mean Platelet Volume 9.6 7.5-10.5 fL Immature Granulocyte % (Auto) 0.5 0-1 % Neutrophils (%) (Auto) 74.0 40.0-77.0 % Lymphocytes (%) (Auto) 16.8 L 21.0-51.0 % Monocytes (%) (Auto) 7.2 3.0-13.0 % Eosinophils (%) (Auto) 1.1 0.0-8.0 % Basophils (%) (Auto) 0.4 0.0-5.0 % Neutrophils # (Auto) 4.2 1.8-7.7 K/uL Lymphocytes # (Auto) 1.0 1.0-4.8 K/uL Monocytes # (Auto) 0.4 0.1-1.0 K/uL Eosinophils # (Auto) 0.06 0.00-0.70 K/uL Basophils # (Auto) 0.02 0.00-0.20 K/uL Absolute Immature Granulocyte (auto 0.03 0-1 K/uL Nucleated Red Blood Cells 0.0 0.0-0.19 % Chemistry Labs: Test 01/12/25 08:32 Range/Units Sodium Level 124 L 136-145 mmol/L Potassium Level 3.9 3.5-5.1 mmol/L Chloride Level 89 *L 101-111 mmol/L Carbon Dioxide Level 32 21-32 mmol/L Blood Urea Nitrogen 11 7-18 mg/dL Creatinine 0.8 0.5-1.0 mg/dL Glomerular Filtration Rate Calc 72 >90 mL/min Random Glucose 102 70-105 mg/dL Total Calcium 9.3 8.5-10.1 mg/dL DIAGNOSTICS / RADIOLOGY RESULTS: [ ] PLAN start NS at 80cc/hr , Na level q6h x 24 hours Free water restriction to 500ml , other fluids no limit Ct abdomen and pelvis to further evaluate her pressure/pain no need for antibiotic therapy at this time- her urinary symptoms are consistent with Urge incontinence. UA unremarkable. no Leukocytosis and is afebrile . Will start on Vibegron if available in formulary . Recommend outpatient Urology evaluation NEURO: Minimize central acting medications as possible. Maintain fall precautions, adequate lighting during the day PULMONARY: Supplemental 02 as needed. Maintain aspiration precautions at all times CARDIOVASCULAR: Follow hemodynamics. Vital signs per facility protocol GI & NUTRITION: Continue with nutritional support. Continue stool softeners and laxatives as needed. KIDNEYS & ELECTROLYTES: Strict monitoring of intake, output and overall fluid balance. Avoid nephrotoxic medications to the extent possible. Medications to be dosed according to renal function. Monitor electrolytes and replace as needed ENDOCRINE: Maintain blood glucose between 100-180 at all times. Hypoglycemia protocol in place INFECTIOUS DISEASE: Trend temperature, WBC and procalcitonin level Follow cultures, deescalate antibiotics as soon as possible. Panculture if new onset fever ONCOLOGY/HEMATOLOGY/COAGULATION: Monitor for s/s of bleeding Monitor hemoglobin, coagulation studies as needed SKIN: Pressure ulcer prevention per facility protocol Specialty mattress ORTHO/REHAB: Continue PT/OT Prophylaxis: Continue GI and DVT prophylaxis Code Status: Full Resuscitation Disposition: TBD Other: Total patient care time exceeds 35 minutes excluding all procedures. DIANE RUVALCABA Jan 12, 2025 12:18
[2025-01-12] MEDS ORDERED: doCUSate SODIUM 100 MG CAP PO PRN (12:30)
[2025-01-12] MEDS ORDERED: acetaMINOPHEN 325 MG TAB PO PRN (12:30)
[2025-01-12] MEDS ORDERED: LOPERAMIDE HCL 2 MG CAP PO PRN (12:30)
[2025-01-12] MEDS ORDERED: BENZOCAINE/MENTH/CETYLPYRD CL 1 EACH LOZENGE MM PRN (12:30)
[2025-01-12] MEDS ORDERED: guaiFENesin SUGAR-FREE 100 MG/5 ML UDCUP PO PRN (12:30)
[2025-01-12] MEDS ORDERED: ARTIFICAL TEARS SOL 15 ML OP PRN (12:30)
[2025-01-12] MEDS ORDERED: ondanSETRON 4MG INJ IV PRN (12:30)
[2025-01-12] MEDS ORDERED: LIDOCAINE HCL 2% VISCOUS 30 ML, MAG/ALUM/SIMETH 30ML 30 ML, DICYCLOMINE HCL 20 MG PO PRN (12:30)
[2025-01-12] MEDS ORDERED: polyETHYLene GLYCol 3350 17 GM POWD.PACK PO PRN (12:30)
[2025-01-12] MEDS ORDERED: IRON1CAP28 PO (12:38)
[2025-01-12] MEDS ORDERED: MONT-39 PO (12:38)
--- NOTE | 2025-01-12 12:38 | NUR ---
MEDCICATION RECONCILATION COMPLETE
--- NOTE | 2025-01-12 13:30 | NUR ---
REC'D REPORT FROM DERICK CORDERO AND ASSUMED CARE OF CLIENT, AWAKE, ALERT, NO ACUTE DISTRESS NOTED, IVF INFUSING WELL. UP TO RESTROOM WITHOUT DIFFICULTY
[2025-01-12 13:59] LABS: CREATININE 0.8 mg/dL (0.5-1.0); POTASSIUM 3.4 mmol/L (3.5-5.1); THYROID STIMULATING HORMONE 0.85 uIU/mL (0.36-3.74)
[2025-01-12] MEDS ORDERED: PHARMACY COMMUNICATION MISC SCH (14:00)
[2025-01-12] MEDS ORDERED: (Linaclotide (Linzess) 145 MCG) PO PRN (14:30)
[2025-01-12] MEDS: hydrALAZine 25MG TABLET PO PRN (14:52)
--- NOTE | 2025-01-12 14:55 | NUR ---
PT TOOK HER OWN LISINOPRIL/TYLENOL EARLIER
--- NOTE | 2025-01-12 15:03 | HMCIMG ---
CT ABDOMEN/PELVIS W/O CONTRAST HISTORY: Persistent suprapubic pressure COMPARISON: 05/14/2020 TECHNIQUE: Multiple sequential axial images of the abdomen and pelvis were obtained from the dome of the diaphragm through symphysis pubis. Patient was not given contrast through intravenous route. Oral contrast was not given. FINDINGS: No pleural effusion is seen bilaterally. There is no evidence of parenchymal disease or pulmonary nodule of the visualized lower lungs. Degenerative changes of the thoracolumbar spine are present. The heart is not enlarged. There is right hepatic cyst measuring 3.4 cm. Liver measured 13 cm. A small hiatal hernia is seen. The liver, spleen, adrenal glands and pancreas are unremarkable. There is no evidence of hydronephrosis bilaterally. No evidence of renal stone is seen. Fecal material is seen in the colon. There is mild diverticulosis. There are normal size retroperitoneal and mesenteric lymph nodes. No ascites is seen. Atherosclerotic changes are present. Pelvic sidewalls are symmetric bilaterally. Bladder is poorly distended. If there is clinical suspicion for cystitis, urinalysis correlation may be helpful IMPRESSION: 1. Small hiatal hernia. Diverticulosis. No ascites. CT was performed with one or more following dose reduction techniques: automated exposure control, adjustment of the mA and kv according to patient's size, or use of a iterative reconstruction technique.
[2025-01-12 15:50] VITALS: BP 158/62; PULSE 74; RESP 18; TEMP 97.4
[2025-01-12] MEDS ORDERED: PoTASSium chloRIDE 20MEQ/100ML 100 ML IV PRN ×2 (16:00)
[2025-01-12] MEDS ORDERED: PoTASSium chloRIDE 20MEQ ER 20 MEQ ERTAB PO PRN (16:00)
[2025-01-12] MEDS: acetaMINOPHEN 325 MG TAB PO PRN (18:12)
[2025-01-12] MEDS: 0.9%NACL 1000ML 1,000 ML IV SCH (18:12)
[2025-01-12 18:27] VITALS: O2SAT 95
[2025-01-12 19:05] VITALS: O2SAT 100
[2025-01-12 20:00] VITALS: BP 141/60; PULSE 70; RESP 20; TEMP 97.9
[2025-01-12 20:12] LABS: CREATININE 0.8 mg/dL (0.5-1.0); POTASSIUM 3.3 mmol/L (3.5-5.1)
[2025-01-12] MEDS: atorVAStatin 10 MG TABLET PO SCH (20:33)
[2025-01-12] MEDS: SODIUM CHLORIDE 1,000 MG TAB PO SCH (20:33)
[2025-01-12] MEDS: FAMOTIDINE 20MG TAB PO SCH (20:33)
[2025-01-12] MEDS: GABAPENTIN 300 MG CAPSULE PO SCH (20:33)
[2025-01-12] MEDS: C NO 9 PO SCH (20:40)
[2025-01-12] MEDS: [UNRECOGNIZED DRUG - OTHER] PO SCH (20:40)
[2025-01-12] MEDS: IRON FUM PO SCH (20:40)
[2025-01-12] MEDS: VIT B PO SCH (20:40)
[2025-01-12] MEDS: PoTASSium chl 10% ELIXIR 20MEQ 20 MEQ/15 ML UDCUP PO PRN (21:56)
[2025-01-13] VITALS: BP 147/53; PULSE 64; RESP 20; TEMP 98.2
[2025-01-13 01:20] LABS: CREATININE 0.8 mg/dL (0.5-1.0); POTASSIUM 4.5 mmol/L (3.5-5.1)
[2025-01-13 04:00] VITALS: BP 141/69; PULSE 65; RESP 20; TEMP 99
[2025-01-13 08:00] VITALS: BP 157/73; PULSE 70; RESP 20; TEMP 98.6; O2SAT 100
[2025-01-13] MEDS: LISINOPRIL 10 MG TABLET PO SCH (09:37)
[2025-01-13] MEDS: (Liothyronine Sodium 5 MCG) PO SCH (09:40)
[2025-01-13 11:42] VITALS: BP 149/52; PULSE 71; RESP 20; TEMP 97.3
[2025-01-13 12:17] LABS: CREATININE 0.8 mg/dL (0.5-1.0); POTASSIUM 3.7 mmol/L (3.5-5.1)
--- NOTE | 2025-01-13 14:57 | NUR ---
DCP -- Home Patient is Belarusian speaking. Patient states she lives alone in an apartment on first floor and has a walk in shower. States she is retired, remains independent and does not drive. States she needs licensed occupational therapy assistant to complete ADL's. States she has a cane, regular walker, walker with a seat, bedside commode and shower chair. Denies home health services and dialysis. [facility] provides a provider for 22.5 hours per week. PCP - [facility], [place]. Upon discharge, Niurka Marina, Daughter/Provider [phone] and assist with care, as needed. Addendum: 01/13/25 at 1503 by ANGELA BINGHAM RN CM Amended: Links added.
--- NOTE | 2025-01-13 15:18 | NUR ---
Nutrition consult per nutrition education Reviewed labs, notes, and medications. Pt drinks 3-4 L of water, to be d/c today, on regular diet, IV fluid, Na 132(L), NO LIPID PANEL per chart review. Wt via standing scale, 100%PO intake, last BM 01/11/25, no edema, mild muscle and fat loss, no wounds per nursing. Visually assessed muscle and fat loss during visit. Pt reported she drinks activia and ensure daily, drinks a lot of water, was told in [facility] to not use salt products, does not know her last cholesterol lab result, tries to visit PCP biweekly. Pt with non-severe PCM, Supplement thiamin 100 mg/day for 5-7 days + MVI QD for at least [address] reviewed MNT for HH diet, MNT for hydration, Pt receptive. Communicated in Icelandic during visit. Recommendations: -Provide HH diet + SF gatorade + ensure MAX QD w/ am tray -Monitor PO intake -Encourage PO intake as able -Monitor BM -If no BM >3 days consider stool softener -Monitor electrolytes -Replenish electrolytes per protocol -Monitor wts -Reweigh as able -Order Vit D, vit b-12 labs to rule out deficiencies -Order lipid panel -Texture per ELECTROSLAG WELDING MACHINE OPERATOR recs -Recommend Pt to follow up with PCP -Monitor goals of care RD to follow + available for consult per protocol Addendum: 01/13/25 at [address] Amended: Links added.
[2025-01-13] MEDS ORDERED: VIBE75TA PO (17:02)
--- NOTE | 2025-01-13 17:04 | DS ---
[facility] DISCHARGE SUMMARY Date Patient Seen: Jan 13, 2025 Time of Visit: 16:59 Supervising Physician: YUSUF HOBBS Primary Care Physician: DR CHELSIE COBIAN Outpatient Specialists: [ ] Inpatient Consults: [ ] PROBLEM LIST: Acute hyponatremia , 124 POA ,RESOLVED Severe Dysuria secondary to Urge Incontinence with suspected bladder spasms ,negative for infection Hypertension Hyperlipidemia Hypothyroidism HOSPITAL COURSE: This is the case of an 84 year old female that presents to progressively worsening suprapubic discomfort over the course of many weeks . Patient states she gets the urge to go to the restroom every 15 minutes or so and only voids a scant amount. Denies hematuria, no vaginal discharge is post hysterectomy . Has seen Dr. Ferrell in the past and was placed on a medication temporarily but was not refilled. She is moderate distresss due to her discomfort and decided to present for further medical evaluation. In the ED she is noted to have an NA level of 124 and low Chloride level as well. BUN/Cr WNL . No leukocytosis and UA revealing no evidence of Leuk esterace or Nitrates, WBC at 2-5 . She states she has not had prior Urological interventions in past and was only given gabapentin /tylenol for her bladder symptoms and advised to drink lots of water. For this reason she states she drinks 3-4L of Water a day . 2 overnight and rest during the day . She will be admitted for acute hyponatremia mgt and further workup regarding her pelvic pressure/pain. PATIENT RECEIVED IV FLUIDS WITH NS AND FREE WATER RESTRICTIN. NA IMPROVED TO 132 . SHE WILL BE SENT HOME , DIETARY CONSULTED AND EDUCATED PATIENT ON WATERI INTAKE AND DIETARY RECOMMENDATIONS. RECOMMEND STARTING VIBEGRON AND UROLOGY CONSULT WITH DR STOKES ADVISED HER THIS MEDICATION MAY TAKE TIME TO WORK AND NOTICE RESULTS , THEREFORE RECOMMEND SHE CONTINUE WITH FOLLOWUPS WITH UROLOGY AND COMPLIANCE PCP WILL BE UPDATED WELL. New Medications: Vibegron (Gemtesa) 75 Mg Tablet 1 TAB PO DAILY for 30 Days, #30 TAB 0 Refills Continued Medications: Acetaminophen (Acetaminophen 8 Hour) 650 Mg Tablet.er 650 MG PO TID PRN for PAIN, TAB Alendronate Sodium (Alendronate Sodium) 70 Mg Tablet 70 MG PO QWEEK, TAB ON MON Atorvastatin Calcium (Atorvastatin Calcium) 10 Mg Tablet 1 TAB PO HS for 30 Days, #30 TAB 0 Refills Cholecalciferol (Vitamin D3) (Vitamin D3) 1,000 Unit Tablet 1000 UNIT PO AM, TAB Gabapentin (Gabapentin) 300 Mg Capsule 300 MG PO HS, CAP Iron Fum & P/FA/Vit B & C No.9 (Folivane-Plus Capsule) 125 Mg Iron-1 Mg Capsule 1 CAP PO HS for 30 Days, #30 CAP 0 Refills Linaclotide (Linzess) 145 Mcg Capsule 145 MCG PO DAILY PRN for CONSTIPATION, CAP Liothyronine Sodium (Liothyronine Sodium) 5 Mcg Tablet 5 MCG PO DAILY, TAB Lisinopril (Lisinopril) 10 Mg Tablet 10 MG PO AM, TAB Loratadine (Loratadine) 10 Mg Tablet 10 MG PO DAILY, TAB Montelukast Sodium (Montelukast Sodium) 10 Mg Tablet 1 TAB PO DAILY for 30 Days, #30 TAB 0 Refills PHYSICAL EXAM: GENERAL: alert, weak, awake oriented x 3 HEENT: EOMI, Sclera non icteric, moist mucosa NECK: Supple, no JVD, trachea midline LUNGS: Clear breath sounds bilaterally. No wheezes HEART: Regular rate and rhythm. Normal S1 and S2, without murmurs ABD: Abdomen soft, NONTENDER. Bowel sounds present EXT: No clubbing cyanosis or edema NEURO: Alert and oriented to person, follows commands FOLLOW-UP: Follow-up with PCP in 2-[address] STOKES 1 WEEK RECOMMENDATIONS: See Discharge Instructions This case was seen and discussed with my supervising physician. More than 30 minutes spent on discharge process, including evaluation of the patient, discussion with nursing staff, medication reconciliation and follow-up appointments DIANE RUVALCABA Jan 13, 2025 17:04
== END 2025-01-13 17:30 | disposition home or self-care (01) ==
LOC: EDH 07:34 → EDHIP 07:35 → 3BH 14:19
PROVIDERS: ADMIT Internal Medicine Critical Care Medicine; ATTEND Internal Medicine Critical Care Medicine
DX: E87.1 Hypo-osmolality and hyponatremia (principal); E86.0 Dehydration; E87.8 Other disorders of electrolyte and fluid balance, not elsewhere classified; I10 Essential (primary) hypertension; E78.00 Pure hypercholesterolemia, unspecified; E03.9 Hypothyroidism, unspecified; N39.41 Urge incontinence; Z90.710 Acquired absence of both cervix and uterus; Z79.899 Other long term (current) drug therapy; Z98.890 Other specified postprocedural states
CPT/HCPCS: 80048 ×5; 96360; 99284; 84443; 85025; 81001; 36415 ×2; 74176; 76857; 96361; G0378 ×29; J7030

== ENCOUNTER 2025-05-08 09:39 | Emergency (ER) | payer OTHER, MEDICARE ==
[~2025-05-08] VITALS: Ht 149.9 cm; Wt 54.4 kg
[~2025-05-08 09:39] MED LIST changes: +IRON1CAP28 PO; +MONT-39 PO; +VIBE75TA PO
[2025-05-08 10:12] LABS: IMMATURE GRANULOCYTE ABSOLUTE 0.05 K/uL (0-1); NUCLEATED RED BLOOD CELLS 0.0 % (0.0-0.19); PLATELET COUNT (AUTO) 250 K/uL (130-400); RED BLOOD CELL COUNT(AUTO) 3.79 MIL/uL (4.00-5.50); RED CELL DISTRIBUTION WIDTH 11.5 % (11.0-15.5); WHITE BLOOD COUNT (AUTO) 10.5 K/uL (4.8-10.8)
--- NOTE | 2025-05-08 10:28 | ERN ---
General Chief Complaint: Mechanical Fall Stated Complaint: FALL, LEFT SIDED PAIN Time Seen by MD: 09:40 Source: patient History of Present Illness Initial Comments Patient is a an 85-year-old female coming in complaining of a fall. Per patient and family member patient tripped and hit herself in the left side of the chest. Patient does has a vision in the left side of the chest. Allergies: Coded Allergies: No Known Drug Allergies (Verified Allergy, Unknown, 03/14/18) banana (Unverified Allergy, Unknown, itching, 08/01/17) honey (Unverified Allergy, Unknown, itching, 08/01/17) Uncoded Allergies: nuts (Allergy, Mild, itching, 08/01/17) Home Meds Active Scripts Vibegron (Gemtesa) 75 Mg Tablet, 1 TAB PO DAILY for 30 Days, #30 TAB 0 Refills Prov:DIANE RUVALCABA 01/13/25 Reported Medications Iron Fum & P/FA/Vit B & C No.9 (Folivane-Plus Capsule) 125 Mg Iron-1 Mg Capsule, 1 CAP PO HS for 30 Days, #30 CAP 0 Refills 01/12/25 Montelukast Sodium (Montelukast Sodium) 10 Mg Tablet, 1 TAB PO DAILY for 30 Day s, #30 TAB 0 Refills 01/12/25 Atorvastatin Calcium (Atorvastatin Calcium) 10 Mg Tablet, 1 TAB PO HS for 30 Days, #30 TAB 0 Refills 09/30/24 Acetaminophen (Acetaminophen 8 Hour) 650 Mg Tablet.er, 650 MG PO TID PRN for PAIN, TAB 01/02/20 Linaclotide (Linzess) 145 Mcg Capsule, 145 MCG PO DAILY PRN for CONSTIPATION, CAP 06/19/19 Lisinopril (Lisinopril) 10 Mg Tablet, 10 MG PO AM, TAB 05/21/19 Cholecalciferol (Vitamin D3) (Vitamin D3) 1,000 Unit Tablet, 1000 UNIT PO AM, TAB 05/21/19 Alendronate Sodium (Alendronate Sodium) 70 Mg Tablet, 70 MG PO QWEEK, TAB ON Mon11/05/18 Liothyronine Sodium (Liothyronine Sodium) 5 Mcg Tablet, 5 MCG PO DAILY, TAB 03/09/18 Loratadine (Loratadine) 10 Mg Tablet, 10 MG PO DAILY, TAB 03/08/18 Gabapentin (Gabapentin) 300 Mg Capsule, 300 MG PO HS, CAP 08/01/17 Past Medical History Past Medical History: High Cholesterol, Hypertension, Hypothyroid, UTI Past Surgical History: Appendectomy, Hysterectomy, Cholecystectomy, Social History Social History: Negative, Lives with family Female( History) History: Not Applicable ROS Dictation CONSTITUTIONAL: No chills, no fever, no weakness, no diaphoresis, no malaise. HEAD/FACE: No signs of trauma. EENT: No eye pain, no blurred vision, no tearing, no double vision, no ear pain, no ear discharge, no nose pain, no nasal congestion, no throat pain, no throat swelling, no mouth pain. RESPIRATORY: No cough, no orthopnea, no SOB, no stridor, no wheezing. CARDIOVASCULAR: chest pain, no edema, no palpitations, no syncope. GASTROINTESTINAL/ABDOMINAL: No abdominal pain, no constipation, no diarrhea, no nausea, no vomiting. GENITOURINARY: No abnormal discharge, no dysuria, no frequent urination, no hematuria. No complaints of pain in the genitals. MUSCULOSKELETAL: No back pain, no gout, no joint pain, no joint swelling, no muscle pain, no muscle stiffness, no neck pain. INTEGUMENTARY: No change in color, no change in hair/nails, no dryness, no lesion, no lumps, no rash. NEUROLOGICAL/PSYCH: No anxiety, not depressed, no emotional problem, no headache, no numbness, no pre-existing deficit, no history of seizures, no tremors, no weakness. HEMATOLOGIC/LYMPHATIC: Not anemic, no history of blood clots, no apparent bleeding, no bruising, glands not swollen. All Systems Negative, Except as Noted. Physical Exam Physical Exam Dictation VITAL SIGNS: Reviewed. GENERAL APPEARANCE: Alert, oriented x3, no acute distress, obese. HEAD AND FACE: Non-traumatic. EYES: PERRL, pink conjunctivas, eyelid no trauma, anterior chamber clear. EARS: Pinnas intact and no signs of trauma or erythema. Ear canals clear and no discharge. TMs no erythema. NOSE: No discharge, no bleeding. OROPHARYNX: Mouth normal, teeth no caries, tongue pink. Pharynx clear, no erythema. Tonsils no exudates, no abscesses noted. Mucous membrane moist. NECK: Supple, non-tender, no thyromegaly, no masses, no JVD, no bruits. BREAST: Deferred. CHEST: Left side tenderness, no crepitus, no paradoxical movement, no retractions. LUNGS: Clear, well-ventilated, symmetric, no rales, no wheezing, no rhonchi, no stridor, good breath sounds bilaterally. HEART: Regular rate, regular rhythm, no murmur, no gallops. VASCULAR: No peripheral edema. ABDOMEN: Soft, positive bowel sounds, nondistended, no guarding, nontender, no rebound, no masses no hepatomegaly, no splenomegaly, no Guzman's sign, no hernias. RECTAL: Deferred. GENITAL: Deferred. NEUROLOGICAL: Normal speech, gross motor function intact, gross sensory function intact. MUSCULOSKELETAL: Neck nontender, full range of motion, back nontender, full range of motion. EXTREMITIES: Nontender, full range of motion. SKIN: Color pink, dry, no turgor, no rash, no lacerations, no abrasions, no contusions. LYMPHATICS: Deferred. Results Laboratory and Microbiology Lab and Micro Result Laboratory Tests Test 05/08/25 09:53 05/08/25 10:04 Urine Color YELLOW (YELLOW) Urine Appearance CLEAR (CLEAR) Urine pH 6.0 (5.0-8.0) Urine Specific [place] 1.020 (1.001-1.031) Urine Protein 30 mg/dL (NEGATIVE) H Urine Glucose (UA) NEGATIVE mg/dL (NEGATIVE) Urine Ketones NEGATIVE mg/dL (NEGATIVE) Urine Occult Blood TRACE-INTACT (NEGATIVE) H Urine Nitrate NEGATIVE (NEGATIVE) Urine Bilirubin NEGATIVE mg/dL (NEGATIVE) Urine Urobilinogen 0.2 mg/dL (0.2-1.0) Urine Leukocyte Esterase NEGATIVE Bhavna/uL Urine RBC 0-1 /HPF (0-1) Urine WBC 0-1 /HPF (0-1) Urine Squamous Epithelial Cells None Seen /HPF (0-2) Urine Bacteria None Seen /HPF (None Seen) White Blood Count 10.5 K/uL (4.8-10.8) Red Blood Count 3.79 MIL/uL (4.00-5.50) L Hemoglobin 12.2 g/dL (12.0-16.0) Hematocrit 35.3 % (36-48) L Mean Corpuscular Volume 93.1 fL (79-99) Mean Corpuscular Hemoglobin 32.2 pg (27.0-33.0) Mean Corpuscular Hemoglobin Concent 34.6 g/dL (32.0-36.0) Red Cell Distribution Width 11.5 % (11.0-15.5) Platelet Count 250 K/uL (130-400) Mean Platelet Volume 9.8 fL (7.5-10.5) Immature Granulocyte % (Auto) 0.5 % (0-1) Neutrophils (%) (Auto) 85.6 % (40.0-77.0) H Lymphocytes (%) (Auto) 7.8 % (21.0-51.0) L Monocytes (%) (Auto) 5.5 % (3.0-13.0) Eosinophils (%) (Auto) 0.1 % (0.0-8.0) Basophils (%) (Auto) 0.5 % (0.0-5.0) Neutrophils # (Auto) 9.0 K/uL (1.8-7.7) H Lymphocytes # (Auto) 0.8 K/uL (1.0-4.8) L Monocytes # (Auto) 0.6 K/uL (0.1-1.0) Eosinophils # (Auto) 0.01 K/uL (0.00-0.70) Basophils # (Auto) 0.05 K/uL (0.00-0.20) Absolute Immature Granulocyte (auto 0.05 K/uL (0-1) Nucleated Red Blood Cells 0.0 % (0.0-0.19) White Cell Morphology Comment See comments Sodium Level 130 mmol/L (136-145) L Potassium Level 3.8 mmol/L (3.5-5.1) Chloride Level 95 mmol/L (101-111) L Carbon Dioxide Level 28 mmol/L (21-32) Blood Urea Nitrogen 16 mg/dL (7-18) Creatinine 0.7 mg/dL (0.5-1.0) Glomerular Filtration Rate Calc 84 mL/min (>90) Random Glucose 156 mg/dL (70-105) H Total Calcium 9.3 mg/dL (8.5-10.1) Total Creatine Kinase 130 U/L (21-232) # Troponin I High Sensitivity 6 ng/L (4-50) Labs Reviewed?: Yes EKG/XRAY/US/CT/MRI EKG Comment 05/08/2025 time 10:14 a.m. Ventricular rate 71 Sinus rhythm [place] [address] wave elevation or depression CT Scan Comment [facility] [address] [place] [address] IMAGING REPORT Signed PATIENT: MEJIA HOWARD MR#: [id number] : 1940 SEX: F AGE: 85 LOCATION: [facility] ORDER 46 STATUS: REG ER REPORT#: [id number] SERVICE 45 REASON: chest pain ORDERING PHYSICIAN: ARANZA VALDES MD PROCEDURE: CHEST WO - CT CHEST W/O CONTRAST EXAM: CT Chest Without IV contrast. CLINICAL HISTORY: chest pain TECHNIQUE: Axial computed tomography images of the chest without intravenous contrast. COMPARISON: Study dated 09/30. FINDINGS: LUNGS: There is mild to moderate centrilobular emphysema. Incidental calcified granulomas noted bilaterally. No suspicious pulmonary nodule or focal airspace disease. PLEURAL SPACES: No evidence of pneumothorax. No pleural effusion. HEART: No cardiomegaly. No significant pericardial effusion. Atherosclerotic vessel wall calcification in the arch of the aorta and the descending thoracic aorta. LYMPH NODES: No enlarged lymphadenopathy is evident. UPPER ABDOMEN: Two simple hepatic cysts in the right lobe of the liver largest measuring 3.5 cm. These may be further characterized with ultrasound. Small hiatal hernia. BONES: Spondylosis within the visualized axial skeleton. Degenerative changes in both shoulder joints. No acute osseous abnormality. IMPRESSION: 1. No acute intrathoracic findings. /[place] DICTATED BY: RIK GLEASON Jr., MD DATE: 05/08/251336 ELECTRONICALLY SIGNED BY: RIK GLEASON Jr., MD DATE: 05/08/251336 [facility] MDM: Differential diagnosis: Mechanical fall, chest contusion, Rationale: Tests considered and ordered secondary to shared decision making include: Previous outside records reviewed: Old ER visits. Risk of complication and/or morbidity or mortality of patient management: None Medications-Per medication reconciliation Need for hospitalization: Patient does not meet criteria for hospitalization. Patient is a an 85-year-old female coming in after she had a mechanical fall earlier today. Imaging studies and laboratory workup did disclose the in his he had abnormalities. Patient will be discharged in stable condition with a diagnosis of mechanical fall with chest wall contusion. ED Course Orders Procedure Category Date Status Time Cbc With Differential LAB 05/08/25 Complete 09:44 Chest 1vw RAD 05/08/25 Resulted 09:44 12 Lead Ekg Tracing- EKG 05/08/25 Complete Technical 09:44 Creatine Kinase, Total LAB 05/08/25 Complete 09:44 Troponin I High LAB 05/08/25 Complete Sensitivity 09:44 Basic Metabolic Panel LAB 05/08/25 Complete 09:44 Ct Chest W/O Contrast CT 05/08/25 Resulted 10:46 Urinalysis LAB 05/08/25 Complete W/Microscopic 10:50 Vital Signs Date Time Temp Pulse Resp B/P (MAP) Pulse Ox O2 Delivery O2 Flow Rate FiO2 05/08/25 10:13 98.8 79 20 151/51 99 Room Air* 0 21 05/08/25 09:40 98.8 79 20 151/51 99 0 DX & DISP Disposition: Discharge Departure Impression: Primary Impression: Fall Additional Impression: Chest wall contusion Condition: Stable Additional Instructions: You have been reviewed in the emergency department at [facility] after presenting with chest pain. After considering your history, your risk factors, your EKG and your blood test troponins, have been found to be at very low risk less than (1 in 100) of having a major adverse cardiac event (like heart attack) in the near future. In the " low risk" group, the risks of doing further tests and treatment as the inpatient outweighs the benefits. In many patients in the low risk group for the test of any sort or unnecessary, however he should discuss this further with his general practitioner who will understand the medical and personal backgrounds better. Because we have never declared you" no risk" we would suggest. 1 returning for medical review if you have further episodes of chest pain/arm pain or other concerning symptoms like dizziness, collapse, palpitations or shortness of breath. 2. Following up with your local doctor who will consider the need for further testing and will also ensure that any modifiable risk factors you may have for heart disease are optimally managed. Patient will be discharged in stable condition at the moment discharge patient states , no chest pain Referrals: EDMOND DICKEY-TAHIR (PCP) Time of Disposition: 12:44 ARANZA VALDES MD May 08, 2025 10:28
[2025-05-08 10:29] LABS: CREATINE KINASE, TOTAL 130.0 U/L (21-232); CREATININE 0.7 mg/dL (0.5-1.0); GLOMERULAR FILTR. RATE CALC 84.0 mL/min (>90); GLUCOSE,RANDOM 156.0 mg/dL (70-105); SODIUM SERUM 130.0 mmol/L (136-145); UREA NITROGEN, BLOOD 16.0 mg/dL (7-18)
--- NOTE | 2025-05-08 10:30 | EKG ---
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
--- NOTE | 2025-05-08 10:44 | HMCIMG ---
Examination: Chest, 1 view Clinical history: Fall, chest pain Comparison: September 30, 2024 Findings: AP view of the chest is submitted. Mild bibasilar atelectasis. Lungs are otherwise clear. No pleural effusion or pneumothorax. Heart size and pulmonary vessels are within normal limits. Atherosclerotic vascular calcifications are noted. Impression: Mild bibasilar atelectasis. No acute cardiopulmonary process. /[place]
[2025-05-08 12:15] LABS: APPEARANCE,URINE CLEAR (CLEAR); GLUCOSE, URINE (UA) NEGATIVE (NEGATIVE); LEUKOCYTE ESTERASE ,URINE NEGATIVE Leu/uL (NEGATIVE); NITRATE,URINE NEGATIVE (NEGATIVE); OCCULT BLOOD,URINE TRACE-INTACT (NEGATIVE)
[2025-05-08 12:31] LABS: SQUAMOUS EPITHELIAL CELL,UR None Seen /HPF (0-2)
--- NOTE | 2025-05-08 12:39 | HMCIMG ---
EXAM: CT Chest Without IV contrast. CLINICAL HISTORY: chest pain TECHNIQUE: Axial computed tomography images of the chest without intravenous contrast. COMPARISON: Study dated 09/30. FINDINGS: LUNGS: There is mild to moderate centrilobular emphysema. Incidental calcified granulomas noted bilaterally. No suspicious pulmonary nodule or focal airspace disease. PLEURAL SPACES: No evidence of pneumothorax. No pleural effusion. HEART: No cardiomegaly. No significant pericardial effusion. Atherosclerotic vessel wall calcification in the arch of the aorta and the descending thoracic aorta. LYMPH NODES: No enlarged lymphadenopathy is evident. UPPER ABDOMEN: Two simple hepatic cysts in the right lobe of the liver largest measuring 3.5 cm. These may be further characterized with ultrasound. Small hiatal hernia. BONES: Spondylosis within the visualized axial skeleton. Degenerative changes in both shoulder joints. No acute osseous abnormality. IMPRESSION: 1. No acute intrathoracic findings. /[place]
[2025-05-08 13:05] VITALS: BP 171/73; PULSE 68; RESP 18; TEMP 98.5; O2SAT 99
== END 2025-05-08 13:10 | disposition home or self-care (01) ==
LOC: EDH 09:39
DX: S20.212A Contusion of left front wall of thorax, initial encounter (principal); E78.00 Pure hypercholesterolemia, unspecified; E03.9 Hypothyroidism, unspecified; I10 Essential (primary) hypertension; Z79.890 Hormone replacement therapy; Z79.899 Other long term (current) drug therapy; Z90.49 Acquired absence of other specified parts of digestive tract; Z90.710 Acquired absence of both cervix and uterus; W01.0XXA Fall on same level from slipping, tripping and stumbling without subsequent striking against object, initial encounter; Y93.89 Activity, other specified; Y92.89 Other specified places as the place of occurrence of the external cause; Y99.8 Other external cause status
CPT/HCPCS: 36415; 71045; 71250; 80048; 81001; 82550; 84484; 85025; 93005; 99285

== ENCOUNTER 2025-10-06 18:46 | Emergency (ER) | payer OTHER, MEDICAID ==
[~2025-10-06] VITALS: Ht 147.3 cm; Wt 54.4 kg
[2025-10-06 18:47] VITALS: TEMP 98.6
--- NOTE | 2025-10-06 19:19 | ERN ---
ED Note History of Present Illness Stated Complaint: ELEVATED BP Chief Complaint: Hypertension Time Seen by MD: 18:49 Time Seen by Midlevel: 18:49 Dictation: The patient is a 85-year-old female with a history of hyperlipidemia, hypertension on lisinopril 10 mg, appendectomy, cholecystectomy who presents to the emergency department with complaints of elevated blood pressure onset today. Per family blood pressure was in the 200s systolic. Patient reports that she always checks her blood pressure around this time. Patient otherwise denies any headache, dizziness, chest pain or shortness of breath. Denies any nausea or vomiting. Patient does report for the last couple of days she has been having some frequent urination but denies any fevers, abdominal pain Allergies: Coded Allergies: No Known Drug Allergies (Verified Allergy, Unknown, 03/14/18) banana (Unverified Allergy, Unknown, itching, 08/01/17) honey (Unverified Allergy, Unknown, itching, 08/01/17) Uncoded Allergies: nuts (Allergy, Mild, itching, 08/01/17) Home Meds Active Scripts Vibegron (Gemtesa) 75 Mg Tablet, 1 TAB PO DAILY for 30 Days, #30 TAB 0 Refills Prov:DIANE RUVALCABA PAC 01/13/25 Reported Medications Iron Fum & P/FA/Vit B & C No.9 (Folivane-Plus Capsule) 125 Mg Iron-1 Mg Capsule, 1 CAP PO HS for 30 Days, #30 CAP 0 Refills 01/12/25 Montelukast Sodium (Montelukast Sodium) 10 Mg Tablet, 1 TAB PO DAILY for 30 Da ys, #30 TAB 0 Refills 01/12/25 Atorvastatin Calcium (Atorvastatin Calcium) 10 Mg Tablet, 1 TAB PO HS for 30 Days, #30 TAB 0 Refills 09/30/24 Acetaminophen (Acetaminophen 8 Hour) 650 Mg Tablet.er, 650 MG PO TID PRN for PAIN, TAB 01/02/20 Linaclotide (Linzess) 145 Mcg Capsule, 145 MCG PO DAILY PRN for CONSTIPATION, CAP 06/19/19 Lisinopril (Lisinopril) 10 Mg Tablet, 10 MG PO AM, TAB 05/21/19 Cholecalciferol (Vitamin D3) (Vitamin D3) 1,000 Unit Tablet, 1000 UNIT PO AM, TAB 7/30/19 Alendronate Sodium (Alendronate Sodium) 70 Mg Tablet, 70 MG PO QWEEK, TAB ON Mon11/05/18 Liothyronine Sodium (Liothyronine Sodium) 5 Mcg Tablet, 5 MCG PO DAILY, TAB 03/09/18 Loratadine (Loratadine) 10 Mg Tablet, 10 MG PO DAILY, TAB 03/08/18 Gabapentin (Gabapentin) 300 Mg Capsule, 300 MG PO HS, CAP 08/01/17 Past Medical History Past Medical History: High Cholesterol, Hypertension, Hypothyroid, UTI Surgical History: Appendectomy, Hysterectomy, Cholecystectomy, Social History: Negative, Lives with family History: Not Applicable RN Note Reviewed/Agreed w/PFSH: Yes Review of System Dictation Constitutional: Negative for fever,chills, and weight loss Eyes: Negative for injury, pain,redness, and discharge ENT: Negative for injury,pain or swelling Cardiovascular: Negative for chest pain, palpitations, and edema Respiratory: Negative for shortness of breath, cough, and wheezing, Abdomen/GI: Negative for abdominal pain, nausea, vomiting, diarrhea, and constipation Back: Negative for injury and pain : Negative for injury, bleeding and discharge positive for frequent urination MS/Extremity: Negative for injury and deformity Skin: Negative for rash, and discoloration Neuro: Negative for headache, weakness, numbness, tingling, and seizure Psych: Negative for suicide ideation, homicidal ideation, and hallucinations Initial Vital Sign VS Vital Signs Date Time Temp Pulse Resp B/P (MAP) Pulse Ox O2 Delivery O2 Flow Rate FiO2 10/06/25 18:47 98.6 87 16 179/73 100 Room Air 0 10/06/25 21:40 21 Physical Exam Dictation Vital Signs reviewed General Appearance: Alert, oriented x 3, no acute distress, well developed, nourished. Head and Face: non-traumatic. Eyes: PERRL, pink conjunctivas, eyelid no trauma, anterior chamber with arcus senilis. Ears: Pinnas intact and no signs of trauma or erythema ear canals clear and no discharge TM no erythema Nose: No discharge, no bleeding. Oropharynx: Mouth normal, tongue pink. pharynx clear,no erythema, tonsils no exudates, no abscesses noted, mucous membrane moist Neck: Supple, non-tender, no thyromegaly, no masses, no JVD, no bruits Breast:Deferred Chest:No tenderness, no crepitus, no paradoxical movement, no retractions Lungs:Clear, well-ventilated, symmetric, no rales, no wheezing, no rhonchi, no stridor, good breath sounds bilaterally Heart: Regular rate, regular rhythm, no murmur, no gallops Vascular: no peripheral edema, Abdomen: Soft, positive bowel sounds, nondistended, no guarding, nontender, no rebound, no masses no hepatomegaly, no splenomegaly, no Guzman's sign, no hernias. Rectal: Deferred Genital: Deferred Neurological: Normal speech, motor function intact, sensory function intact , upper extremities equal in strength, lower extremities equal in strength, no facial droop Musculoskeletal: Neck nontender, full range of motion, back nontender, full range of motion, Extremities: nontender, full range of motion Skin: Color pink, dry, no turgor, no rash, no lacerations, no abrasions, no contusions. Lymphatic: Deferred Results (Laboratory/Radiology) Laboratory/Radiology Laboratory Tests Test 10/06/25 19:12 10/06/25 19:22 Urine Color COLORLESS (YELLOW) Urine Appearance CLEAR (CLEAR) Urine pH 6.5 (5.0-8.0) Urine Specific [place] 1.005 (1.001-1.031) Urine Protein NEGATIVE mg/dL (NEGATIVE) Urine Glucose (UA) NEGATIVE mg/dL (NEGATIVE) Urine Ketones NEGATIVE mg/dL (NEGATIVE) Urine Occult Blood NEGATIVE (NEGATIVE) Urine Nitrate NEGATIVE (NEGATIVE) Urine Bilirubin NEGATIVE mg/dL (NEGATIVE) Urine Urobilinogen 0.2 mg/dL (0.2-1.0) Urine Leukocyte Esterase NEGATIVE Bhavna/uL White Blood Count 6.5 K/uL (4.8-10.8) Red Blood Count 3.94 MIL/uL (4.00-5.50) L Hemoglobin 12.6 g/dL (12.0-16.0) Hematocrit 37.3 % (36-48) Mean Corpuscular Volume 94.7 fL (79-99) Mean Corpuscular Hemoglobin 32.0 pg (27.0-33.0) Mean Corpuscular Hemoglobin Concent 33.8 g/dL (32.0-36.0) Red Cell Distribution Width 11.1 % (11.0-15.5) Platelet Count 251 K/uL (130-400) Mean Platelet Volume 9.9 fL (7.5-10.5) Immature Granulocyte % (Auto) 0.3 % (0-1) Neutrophils (%) (Auto) 71.3 % (40.0-77.0) Lymphocytes (%) (Auto) 18.5 % (21.0-51.0) L Monocytes (%) (Auto) 8.3 % (3.0-13.0) Eosinophils (%) (Auto) 1.1 % (0.0-8.0) Basophils (%) (Auto) 0.5 % (0.0-5.0) Neutrophils # (Auto) 4.7 K/uL (1.8-7.7) Lymphocytes # (Auto) 1.2 K/uL (1.0-4.8) Monocytes # (Auto) 0.5 K/uL (0.1-1.0) Eosinophils # (Auto) 0.07 K/uL (0.00-0.70) Basophils # (Auto) 0.03 K/uL (0.00-0.20) Absolute Immature Granulocyte (auto 0.02 K/uL (0-1) Nucleated Red Blood Cells 0.0 % (0.0-0.19) Sodium Level 131 mmol/L (136-145) L Potassium Level 3.7 mmol/L (3.5-5.1) Chloride Level 97 mmol/L (101-111) L Carbon Dioxide Level 29 mmol/L (21-32) Blood Urea Nitrogen 17 mg/dL (7-18) Creatinine 0.9 mg/dL (0.5-1.0) Glomerular Filtration Rate Calc 62 mL/min (>90) Random Glucose 136 mg/dL (70-105) H Total Calcium 9.3 mg/dL (8.5-10.1) Troponin I High Sensitivity 6 ng/L (4-50) Labs Reviewed?: Yes EKG: (+) rhythm (Sinus rhythm) EKG Comment: Date:10/06/2025 Time:1936 Ventricular rate:76 MN interval:140 QRS duration:76 QT/QTc:372/419 EKG interpretation: Sinus rhythm Reviewed by ED Attending no STEMI ED Course ED Course Orders Procedure Category Date Status Time Cbc With Differential LAB 10/06/25 Complete 19:09 Troponin I High LAB 10/06/25 Complete Sensitivity 19:09 Urinalysis Profile LAB 10/06/25 Complete 19:09 12 Lead Ekg Tracing- EKG 10/06/25 Complete Technical 19:09 Basic Metabolic Panel LAB 10/06/25 Complete 19:09 Hydralazine 20mg Inj PHA 10/06/25 Complete (Apresoline 20mg In 22:00 Current Medications Medications (Trade) Dose Ordered Sig/Andreea Route PRN Reason Start Time Stop Time Status Last Admin Dose Admin Hydralazine HCl (APRESOLine 20MG INJ) 10 mg ONCE ONCE IV 10/06/25 22:00 10/06/25 22:01 DC 10/06/25 22:17 Vital Signs Date Time Temp Pulse Resp B/P (MAP) Pulse Ox O2 Delivery O2 Flow Rate FiO2 10/06/25 22:42 92 18 156/85 99 Room Air* 0 21 10/06/25 22:17 198/72 10/06/25 21:40 68 18 199/72 99 Room Air* 0 21 10/06/25 18:47 98.6 87 16 179/73 100 Room Air 0 Medical Decision Making MDM The patient is a 85-year-old female with a history of hyperlipidemia, hypertension on lisinopril 10 mg, appendectomy, cholecystectomy who presents to the emergency department with complaints of elevated blood pressure onset today. Per family blood pressure was in the 200s systolic. Patient reports that she always checks her blood pressure around this time. Patient otherwise denies any headache, dizziness, chest pain or shortness of breath. Denies any nausea or vomiting. Patient does report for the last couple of days she has been having some frequent urination but denies any fevers, abdominal pain CBC showed no leukocytosis, no anemia, chemistry showed mild hyponatremia, hypochloremia, negative troponin urinalysis unremarkable Differential diagnosis: Hypertensive urgency, hypertensive emergency, UTI, dehydration Need for hospitalization: Patient does not meet criteria for hospitalization. There are no social concerns with this patient. DX & DISP Disposition: Discharge Departure Impression: Primary Impression: Elevated blood pressure reading Condition: Stable Referrals: EDMOND DICKEY (PCP) Time of Disposition: 22:48 I have reviewed the case, and I agree with, Diagnosis and Plan I performed the substantive portion of the visit. I have reviewed and personally made and approve the management plan that is documented in the note by myself or the RYLAN. I acknowledge for responsibility for the patient's management plan. SHEA JUAN PIT BOSS Oct 06, 2025 19:19 JAZZ NORMAN PAC Oct 06, 2025 22:48
[2025-10-06 19:22] LABS: APPEARANCE,URINE CLEAR (CLEAR); GLUCOSE, URINE (UA) NEGATIVE (NEGATIVE); LEUKOCYTE ESTERASE ,URINE NEGATIVE Leu/uL (NEGATIVE); NITRATE,URINE NEGATIVE (NEGATIVE); OCCULT BLOOD,URINE NEGATIVE (NEGATIVE)
[2025-10-06 19:28] LABS: ADD UA MICROSCOPIC NO
[2025-10-06 19:28] LABS: IMMATURE GRANULOCYTE ABSOLUTE 0.02 K/uL (0-1); NUCLEATED RED BLOOD CELLS 0.0 % (0.0-0.19); PLATELET COUNT (AUTO) 251 K/uL (130-400); RED BLOOD CELL COUNT(AUTO) 3.94 MIL/uL (4.00-5.50); RED CELL DISTRIBUTION WIDTH 11.1 % (11.0-15.5); WHITE BLOOD COUNT (AUTO) 6.5 K/uL (4.8-10.8)
[2025-10-06 19:40] LABS: CREATININE 0.9 mg/dL (0.5-1.0); GLOMERULAR FILTR. RATE CALC 62.0 mL/min (>90); GLUCOSE,RANDOM 136.0 mg/dL (70-105); SODIUM SERUM 131.0 mmol/L (136-145); UREA NITROGEN, BLOOD 17.0 mg/dL (7-18)
--- NOTE | 2025-10-06 20:32 | EKG ---
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
[2025-10-06 22:42] VITALS: BP 156/85; PULSE 92; RESP 18; O2SAT 99
== END 2025-10-06 23:27 | disposition home or self-care (01) ==
LOC: EDH 18:46
DX: I10 Essential (primary) hypertension (principal); R35.0 Frequency of micturition; E78.00 Pure hypercholesterolemia, unspecified; E03.9 Hypothyroidism, unspecified; Z91.018 Allergy to other foods; Z79.899 Other long term (current) drug therapy; Z79.890 Hormone replacement therapy; Z87.440 Personal history of urinary (tract) infections; Z90.49 Acquired absence of other specified parts of digestive tract; Z90.710 Acquired absence of both cervix and uterus; Z98.890 Other specified postprocedural states
CPT/HCPCS: 99284; 96374; 84484; 80048; 85025; 81003; 36415; 93005; J0360